=== PATIENT | male | born 1955 | race Two or more races ===

== ENCOUNTER 2020-03-20 13:00 | Outpatient (CLI) | payer MEDICARE, OTHER | END 2020-03-20 23:59 | disposition home health service (06) | LOC: WOU 13:00 | PROVIDERS: ATTEND Surgery | DX: L89.323 Pressure ulcer of left buttock, stage 3 (principal); I70.233 Atherosclerosis of native arteries of right leg with ulceration of ankle; L97.319 Non-pressure chronic ulcer of right ankle with unspecified severity; L22 Diaper dermatitis; G35 Multiple sclerosis; Z86.718 Personal history of other venous thrombosis and embolism; Z79.01 Long term (current) use of anticoagulants | CPT/HCPCS: 11042; A6209 ==

== ENCOUNTER 2020-04-03 12:55 | Outpatient (CLI) | payer MEDICARE, OTHER | END 2020-04-03 23:59 | disposition home or self-care (01) | LOC: WOU 12:55 | PROVIDERS: ATTEND Podiatrist Foot & Ankle Surgery | DX: I73.9 Peripheral vascular disease, unspecified (principal); L60.3 Nail dystrophy; G35 Multiple sclerosis; M25.571 Pain in right ankle and joints of right foot; Z79.01 Long term (current) use of anticoagulants | CPT/HCPCS: A6209; G0463 ==

== ENCOUNTER 2020-04-15 12:50 | Outpatient (CLI) | payer MEDICARE, OTHER | END 2020-04-15 23:59 | disposition home or self-care (01) | LOC: VASLAB 12:50 | PROVIDERS: ATTEND Surgery Vascular Surgery | DX: I87.2 Venous insufficiency (chronic) (peripheral) (principal); L97.318 Non-pressure chronic ulcer of right ankle with other specified severity; G35 Multiple sclerosis; E78.5 Hyperlipidemia, unspecified | CPT/HCPCS: A6209; G0463 ==

== ENCOUNTER 2020-04-17 12:55 | Outpatient (CLI) | payer MEDICARE, OTHER ==
[2020-04-17] MEDS ORDERED: LIDOCAINE SOLN 4% 50 ML BOTTLE ONE (13:10)
== END 2020-04-17 23:59 | disposition home or self-care (01) ==
LOC: WOU 12:55
PROVIDERS: ATTEND Podiatrist Foot & Ankle Surgery
DX: I70.233 Atherosclerosis of native arteries of right leg with ulceration of ankle (principal); L97.312 Non-pressure chronic ulcer of right ankle with fat layer exposed; L03.115 Cellulitis of right lower limb; G35 Multiple sclerosis; M25.571 Pain in right ankle and joints of right foot; L60.3 Nail dystrophy
CPT/HCPCS: 11042; A6210

== ENCOUNTER 2020-04-24 13:05 | Outpatient (CLI) | payer MEDICARE, OTHER | END 2020-04-24 23:59 | disposition home or self-care (01) | LOC: WOU 13:05 | PROVIDERS: ATTEND Podiatrist Foot & Ankle Surgery | DX: I70.233 Atherosclerosis of native arteries of right leg with ulceration of ankle (principal); L97.312 Non-pressure chronic ulcer of right ankle with fat layer exposed; L03.115 Cellulitis of right lower limb; M25.571 Pain in right ankle and joints of right foot; L60.3 Nail dystrophy; G35 Multiple sclerosis | CPT/HCPCS: 11042; 87070-TC; 87075-TC; 87186-TC ==

== ENCOUNTER 2020-05-01 13:20 | Outpatient (CLI) | payer MEDICARE, OTHER | END 2020-05-01 23:59 | disposition home or self-care (01) | LOC: WOU 13:20 | PROVIDERS: ATTEND Podiatrist Foot & Ankle Surgery | DX: I70.233 Atherosclerosis of native arteries of right leg with ulceration of ankle (principal); L97.312 Non-pressure chronic ulcer of right ankle with fat layer exposed; G35 Multiple sclerosis; L60.3 Nail dystrophy; M25.571 Pain in right ankle and joints of right foot | CPT/HCPCS: 11042 ==

== ENCOUNTER 2020-05-08 13:25 | Outpatient (CLI) | payer MEDICARE, OTHER ==
[~2020-05-08 13:25] MED LIST: LIDOCAINE SOLN 4% 50 ML BOTTLE ONE
[2020-05-08] MEDS ORDERED: BACI/NEOM/POLY B OINT PKT 1 UDPKT PACKET ONE (14:21)
== END 2020-05-08 23:59 | disposition home or self-care (01) ==
LOC: WOU 13:25
PROVIDERS: ATTEND Podiatrist Foot & Ankle Surgery
DX: I70.233 Atherosclerosis of native arteries of right leg with ulceration of ankle (principal); L97.322 Non-pressure chronic ulcer of left ankle with fat layer exposed; G35 Multiple sclerosis; M25.571 Pain in right ankle and joints of right foot; L60.3 Nail dystrophy
CPT/HCPCS: 11042

== ENCOUNTER 2020-05-19 08:00 | Outpatient (CLI) | payer MEDICARE, OTHER | END 2020-05-19 23:59 | disposition home or self-care (01) | LOC: WOU 08:00 | PROVIDERS: ATTEND Podiatrist Foot & Ankle Surgery | DX: I70.233 Atherosclerosis of native arteries of right leg with ulceration of ankle (principal); L97.312 Non-pressure chronic ulcer of right ankle with fat layer exposed; M25.571 Pain in right ankle and joints of right foot; L60.3 Nail dystrophy; G35 Multiple sclerosis | CPT/HCPCS: 11042 ==

== ENCOUNTER 2020-05-29 09:40 | Outpatient (CLI) | payer MEDICARE, OTHER ==
[2020-05-29] MEDS ORDERED: LIDOCAINE SOLN 4% 50 ML BOTTLE ONE (09:56)
== END 2020-05-29 23:59 | disposition home or self-care (01) ==
LOC: WOU 09:40
PROVIDERS: ATTEND Podiatrist Foot & Ankle Surgery
DX: I70.233 Atherosclerosis of native arteries of right leg with ulceration of ankle (principal); L97.312 Non-pressure chronic ulcer of right ankle with fat layer exposed; M25.571 Pain in right ankle and joints of right foot; L60.3 Nail dystrophy; G35 Multiple sclerosis
CPT/HCPCS: 15271; Q4196 ×2; 15275

== ENCOUNTER 2020-06-05 09:25 | Outpatient (CLI) | payer MEDICARE, OTHER ==
[2020-06-05] MEDS ORDERED: LIDOCAINE SOLN 4% 50 ML BOTTLE ONE (09:47)
== END 2020-06-05 23:59 | disposition home or self-care (01) ==
LOC: WOU 09:25
PROVIDERS: ATTEND Podiatrist Foot & Ankle Surgery
DX: I70.233 Atherosclerosis of native arteries of right leg with ulceration of ankle (principal); L97.312 Non-pressure chronic ulcer of right ankle with fat layer exposed; L60.3 Nail dystrophy
CPT/HCPCS: 15271; Q4196 ×2; 15275

== ENCOUNTER 2020-06-12 09:25 | Outpatient (CLI) | payer MEDICARE, OTHER ==
[2020-06-12] MEDS ORDERED: LIDOCAINE SOLN 4% 50 ML BOTTLE ONE (09:32)
== END 2020-06-12 23:59 | disposition home or self-care (01) ==
LOC: WOU 09:25
PROVIDERS: ATTEND Podiatrist Foot & Ankle Surgery
DX: I70.233 Atherosclerosis of native arteries of right leg with ulceration of ankle (principal); L97.312 Non-pressure chronic ulcer of right ankle with fat layer exposed; M25.571 Pain in right ankle and joints of right foot; L60.3 Nail dystrophy
CPT/HCPCS: 15271; Q4196 ×2; 15275

== ENCOUNTER 2020-06-19 09:30 | Outpatient (CLI) | payer MEDICARE, OTHER ==
[2020-06-19] MEDS ORDERED: LIDOCAINE SOLN 4% 50 ML BOTTLE ONE (09:39)
== END 2020-06-19 23:59 | disposition home or self-care (01) ==
LOC: WOU 09:30
PROVIDERS: ATTEND Podiatrist Foot & Ankle Surgery
DX: I70.233 Atherosclerosis of native arteries of right leg with ulceration of ankle (principal); L97.312 Non-pressure chronic ulcer of right ankle with fat layer exposed; M25.571 Pain in right ankle and joints of right foot; L60.3 Nail dystrophy
CPT/HCPCS: 15271; Q4196; 15275

== ENCOUNTER 2020-06-26 09:20 | Outpatient (CLI) | payer MEDICARE, OTHER ==
[2020-06-26] MEDS ORDERED: LIDOCAINE SOLN 4% 50 ML BOTTLE ONE (09:34)
== END 2020-06-26 23:59 | disposition home or self-care (01) ==
LOC: WOU 09:20
PROVIDERS: ATTEND Podiatrist Foot & Ankle Surgery
DX: I70.233 Atherosclerosis of native arteries of right leg with ulceration of ankle (principal); L97.312 Non-pressure chronic ulcer of right ankle with fat layer exposed; G35 Multiple sclerosis; L60.3 Nail dystrophy; M25.571 Pain in right ankle and joints of right foot
CPT/HCPCS: 15271; Q4196 ×2

== ENCOUNTER 2020-07-03 09:30 | Outpatient (CLI) | payer MEDICARE, OTHER ==
[2020-07-03] MEDS ORDERED: LIDOCAINE SOLN 4% 50 ML BOTTLE ONE (09:32)
== END 2020-07-03 23:59 | disposition home or self-care (01) ==
LOC: WOU 09:30
PROVIDERS: ATTEND Podiatrist Foot & Ankle Surgery
DX: I70.233 Atherosclerosis of native arteries of right leg with ulceration of ankle (principal); L97.312 Non-pressure chronic ulcer of right ankle with fat layer exposed; L60.3 Nail dystrophy; M25.571 Pain in right ankle and joints of right foot
CPT/HCPCS: 11042

== ENCOUNTER 2020-07-10 09:30 | Outpatient (CLI) | payer MEDICARE, OTHER | END 2020-07-10 23:59 | disposition home or self-care (01) | LOC: WOU 09:30 | PROVIDERS: ATTEND Podiatrist Foot & Ankle Surgery | DX: I70.233 Atherosclerosis of native arteries of right leg with ulceration of ankle (principal); L97.312 Non-pressure chronic ulcer of right ankle with fat layer exposed; L60.3 Nail dystrophy; M25.571 Pain in right ankle and joints of right foot | CPT/HCPCS: 11042 ==

== ENCOUNTER 2020-07-31 09:35 | Outpatient (CLI) | payer MEDICARE, OTHER | END 2020-07-31 23:59 | disposition home or self-care (01) | LOC: WOU 09:35 | PROVIDERS: ATTEND Podiatrist Foot & Ankle Surgery | DX: I70.233 Atherosclerosis of native arteries of right leg with ulceration of ankle (principal); L97.322 Non-pressure chronic ulcer of left ankle with fat layer exposed; G35 Multiple sclerosis; L60.3 Nail dystrophy; M25.571 Pain in right ankle and joints of right foot | CPT/HCPCS: 11042 ==

== ENCOUNTER 2020-08-14 09:35 | Outpatient (CLI) | payer MEDICARE, OTHER | END 2020-08-14 23:59 | disposition home or self-care (01) | LOC: WOU 09:35 | PROVIDERS: ATTEND Podiatrist Foot & Ankle Surgery | DX: I70.233 Atherosclerosis of native arteries of right leg with ulceration of ankle (principal); L97.318 Non-pressure chronic ulcer of right ankle with other specified severity; M25.571 Pain in right ankle and joints of right foot; L60.3 Nail dystrophy; Z79.01 Long term (current) use of anticoagulants; Z79.899 Other long term (current) drug therapy | CPT/HCPCS: G0463 ==

== ENCOUNTER 2021-01-08 10:00 | Outpatient (CLI) | payer MEDICARE, OTHER | END 2021-01-08 23:59 | disposition home or self-care (01) | LOC: WOU 10:00 | PROVIDERS: ATTEND Podiatrist Foot & Ankle Surgery | DX: I70.233 Atherosclerosis of native arteries of right leg with ulceration of ankle (principal); L97.318 Non-pressure chronic ulcer of right ankle with other specified severity; M25.571 Pain in right ankle and joints of right foot; L60.3 Nail dystrophy; Z79.01 Long term (current) use of anticoagulants; Z79.899 Other long term (current) drug therapy ==

== ENCOUNTER 2021-01-15 09:45 | Outpatient (CLI) | payer MEDICARE, OTHER ==
[2021-01-15] MEDS ORDERED: BACITRACIN ZINC OINT PACKET 1 EA PACKET TP ONE (10:41)
== END 2021-01-15 23:59 | disposition home or self-care (01) ==
LOC: WOU 09:45
PROVIDERS: ATTEND Podiatrist Foot & Ankle Surgery
DX: L60.3 Nail dystrophy (principal); I73.9 Peripheral vascular disease, unspecified; M25.571 Pain in right ankle and joints of right foot; Z79.01 Long term (current) use of anticoagulants; Z79.899 Other long term (current) drug therapy
CPT/HCPCS: G0463

== ENCOUNTER 2021-07-09 11:20 | Outpatient (CLI) | payer MEDICARE, OTHER ==
[2021-07-09] MEDS ORDERED: LIDOCAINE 2% JEL 5 ML TUBE ONE (11:48)
[2021-07-09] MEDS ORDERED: COLLAGENASE 5 GM TUBE UD TP ONE (12:01)
== END 2021-07-09 23:59 | disposition home or self-care (01) ==
LOC: WOU 11:20
PROVIDERS: ATTEND Podiatrist Foot & Ankle Surgery
DX: I70.233 Atherosclerosis of native arteries of right leg with ulceration of ankle (principal); L97.312 Non-pressure chronic ulcer of right ankle with fat layer exposed; L60.3 Nail dystrophy; G35 Multiple sclerosis; M25.571 Pain in right ankle and joints of right foot; R26.2 Difficulty in walking, not elsewhere classified; Z79.01 Long term (current) use of anticoagulants; Z79.899 Other long term (current) drug therapy
CPT/HCPCS: 11042

== ENCOUNTER 2021-07-15 08:40 | Outpatient (CLI) | payer MEDICARE, OTHER ==
[2021-07-15] MEDS ORDERED: COLLAGENASE 5 GM TUBE UD TP ONE (09:24)
== END 2021-07-15 23:59 | disposition home or self-care (01) ==
LOC: VASLAB 08:40
PROVIDERS: ATTEND Internal Medicine
DX: I87.2 Venous insufficiency (chronic) (peripheral) (principal); L97.319 Non-pressure chronic ulcer of right ankle with unspecified severity; Z86.718 Personal history of other venous thrombosis and embolism; Z79.01 Long term (current) use of anticoagulants; M79.89 Other specified soft tissue disorders; G35 Multiple sclerosis
CPT/HCPCS: G0463

== ENCOUNTER 2021-07-16 11:10 | Outpatient (CLI) | payer MEDICARE, OTHER ==
[2021-07-16] MEDS ORDERED: COLLAGENASE 5 GM TUBE UD TP ONE (11:35)
== END 2021-07-16 23:59 | disposition home or self-care (01) ==
LOC: WOU 11:10
PROVIDERS: ATTEND Podiatrist Foot & Ankle Surgery
DX: I70.233 Atherosclerosis of native arteries of right leg with ulceration of ankle (principal); L97.312 Non-pressure chronic ulcer of right ankle with fat layer exposed; L03.115 Cellulitis of right lower limb; G35 Multiple sclerosis; R26.2 Difficulty in walking, not elsewhere classified; L60.3 Nail dystrophy; M25.571 Pain in right ankle and joints of right foot; Z79.01 Long term (current) use of anticoagulants; Z79.899 Other long term (current) drug therapy
CPT/HCPCS: 11042

== ENCOUNTER 2021-07-21 13:08 | Outpatient (CLI) | payer MEDICARE, OTHER | END 2021-07-21 23:59 | disposition home or self-care (01) | LOC: MSC 13:08 | PROVIDERS: ATTEND Anesthesiology | DX: G35 Multiple sclerosis (principal); M79.604 Pain in right leg; G82.20 Paraplegia, unspecified; Z99.3 Dependence on wheelchair; M54.50 Low back pain, unspecified; M40.299 Other kyphosis, site unspecified; M79.2 Neuralgia and neuritis, unspecified; L97.901 Non-pressure chronic ulcer of unspecified part of unspecified lower leg limited to breakdown of skin; Z79.891 Long term (current) use of opiate analgesic; Z90.89 Acquired absence of other organs; Z79.890 Hormone replacement therapy; Z98.890 Other specified postprocedural states ==

== ENCOUNTER 2021-08-02 13:08 | Emergency (ER) | payer MEDICARE, OTHER ==
[~2021-08-02] VITALS: Ht 177.8 cm; Wt 98.4 kg
--- NOTE | 2021-08-02 13:30 | NUR ---
SENT HERE FROM CLINIC DUE TO RIGHT LEG PAIN/SWELLING,S/P CARDIAC ABLATION X7 DAYS. A/OX3. TOLERATING R/A WELL WITH NO SOB. CONNECTED PT TO POX AND MONITOR.
[2021-08-02 16:08] LABS: BASOPHILS % (AUTO) 0.5 % (0.0-2.0); EOSINOPHILS % (AUTO) 0.8 % (0.0-6.0); HEMATOCRIT 41 % (39-51); HEMOGLOBIN 13.5 g/dL (13.5-17.5); LYMPHOCYTES # (AUTO) 1.3 K/uL (0.8-4.8); LYMPHOCYTES % (AUTO) 22.6 % (20.0-44.0); MEAN CORPUSCULAR HGB CONC 33 g/dl (31.0-36.0); MEAN CORPUSCULAR VOLUME 91 fL (80-96); MONOCYTES # (AUTO) 0.5 K/uL (0.1-1.30); MONOCYTES % (AUTO) 7.9 % (2.0-12.0); NEUTROPHILS # (AUTO) 3.9 K/uL (1.8-8.9); NEUTROPHILS % (AUTO) 68.2 % (43.0-81.0); PLATELET COUNT (AUTO) 220 K/uL (150-450); RED BLOOD CELL COUNT(AUTO) 4.49 MIL/uL (4.5-6.0); WHITE BLOOD COUNT (AUTO) 5.7 K/uL (4.3-11.0)
[2021-08-02 16:23] LABS: CALCIUM, SERUM 8.2 mg/dL (8.5-10.1); POTASSIUM 4.1 mmol/L (3.5-5.1)
[2021-08-02 16:35] LABS: ALBUMIN 2.9 g/dL (3.4-5.0); BILIRUBIN,DIRECT 0.1 mg/dL (0.0-0.2); BILIRUBIN,TOTAL 0.3 mg/dL (0.2-1.0); TOTAL PROTEIN, SERUM 6.4 g/dL (6.4-8.2)
[2021-08-02] MEDS ORDERED: ONDA4TAB5 PO (17:20)
[2021-08-02] MEDS ORDERED: CEPH500C2 PO (17:20)
[2021-08-02] MEDS ORDERED: SULF1TAB48 PO (17:20)
[2021-08-02 17:35] VITALS: BP 135/72
--- NOTE | 2021-08-02 17:35 | NUR ---
Patient discharged to home in stable condition. Written and verbal after care instructions given. Patient verbalizes understanding of instruction.
== END 2021-08-02 17:36 | disposition home or self-care (01) ==
LOC: ER 13:13
DX: L03.115 Cellulitis of right lower limb (principal); I80.01 Phlebitis and thrombophlebitis of superficial vessels of right lower extremity; R60.0 Localized edema; Z88.6 Allergy status to analgesic agent
CPT/HCPCS: 36415; 80048-TC; 80076-TC; 85025-TC; 93971-TC

== ENCOUNTER 2021-08-13 09:15 | Outpatient (CLI) | payer MEDICARE, OTHER ==
[~2021-08-13 09:15] MED LIST changes: +CEPH500C2 PO; -LIDOCAINE SOLN 4% 50 ML BOTTLE ONE; +ONDA4TAB5 PO; +SULF1TAB48 PO
[2021-08-13] MEDS ORDERED: LIDOCAINE 2% JEL 5 ML TUBE ONE (09:30)
== END 2021-08-13 23:59 | disposition home or self-care (01) ==
LOC: WOU 09:15
PROVIDERS: ATTEND Podiatrist Foot & Ankle Surgery
DX: I70.233 Atherosclerosis of native arteries of right leg with ulceration of ankle (principal); L97.312 Non-pressure chronic ulcer of right ankle with fat layer exposed; G35 Multiple sclerosis; M25.571 Pain in right ankle and joints of right foot; R26.2 Difficulty in walking, not elsewhere classified; L60.3 Nail dystrophy; Z79.01 Long term (current) use of anticoagulants; Z79.899 Other long term (current) drug therapy
CPT/HCPCS: G0463

== ENCOUNTER 2021-08-27 09:00 | Outpatient (CLI) | payer MEDICARE, OTHER | END 2021-08-27 23:59 | disposition home or self-care (01) | LOC: WOU 09:00 | PROVIDERS: ATTEND Podiatrist Foot & Ankle Surgery | DX: I70.233 Atherosclerosis of native arteries of right leg with ulceration of ankle (principal); L97.312 Non-pressure chronic ulcer of right ankle with fat layer exposed; M25.571 Pain in right ankle and joints of right foot; R26.2 Difficulty in walking, not elsewhere classified; L60.3 Nail dystrophy; G35 Multiple sclerosis; Z79.01 Long term (current) use of anticoagulants; Z79.899 Other long term (current) drug therapy | CPT/HCPCS: G0463 ==

== ENCOUNTER 2021-09-10 09:00 | Outpatient (CLI) | payer MEDICARE, OTHER ==
[2021-09-10] MEDS ORDERED: COLLAGENASE 5 GM TUBE UD TP ONE (09:36)
== END 2021-09-10 23:59 | disposition home or self-care (01) ==
LOC: WOU 09:00
PROVIDERS: ATTEND Podiatrist Foot & Ankle Surgery
DX: I70.233 Atherosclerosis of native arteries of right leg with ulceration of ankle (principal); L97.312 Non-pressure chronic ulcer of right ankle with fat layer exposed; L03.115 Cellulitis of right lower limb; G35 Multiple sclerosis; L60.3 Nail dystrophy; R26.2 Difficulty in walking, not elsewhere classified; M25.571 Pain in right ankle and joints of right foot; Z79.01 Long term (current) use of anticoagulants; Z79.899 Other long term (current) drug therapy
CPT/HCPCS: 11042; 87070-TC; 87186-TC

== ENCOUNTER 2021-09-15 11:00 | Outpatient (CLI) | payer MEDICARE, OTHER | END 2021-09-15 23:59 | disposition home or self-care (01) | LOC: MSC 11:00 | PROVIDERS: ATTEND Anesthesiology | DX: L97.911 Non-pressure chronic ulcer of unspecified part of right lower leg limited to breakdown of skin (principal); G35 Multiple sclerosis; Z79.899 Other long term (current) drug therapy; G82.22 Paraplegia, incomplete; G82.20 Paraplegia, unspecified; Z99.3 Dependence on wheelchair; M54.50 Low back pain, unspecified; Z79.891 Long term (current) use of opiate analgesic; M40.299 Other kyphosis, site unspecified; M79.2 Neuralgia and neuritis, unspecified ==

== ENCOUNTER 2021-09-17 09:04 | Outpatient (CLI) | payer MEDICARE, OTHER ==
[2021-09-17] MEDS ORDERED: LIDOCAINE SOLN 4% 50 ML BOTTLE ONE (09:18)
[2021-09-17] MEDS ORDERED: GENTAMICIN 0.1% CREAM 15 GM TUBE ONE (09:52)
== END 2021-09-17 23:59 | disposition home or self-care (01) ==
LOC: WOU 09:04
PROVIDERS: ATTEND Podiatrist Foot & Ankle Surgery
DX: I70.233 Atherosclerosis of native arteries of right leg with ulceration of ankle (principal); L97.312 Non-pressure chronic ulcer of right ankle with fat layer exposed; G35 Multiple sclerosis; L03.115 Cellulitis of right lower limb; B96.5 Pseudomonas (aeruginosa) (mallei) (pseudomallei) as the cause of diseases classified elsewhere; L60.3 Nail dystrophy; M25.571 Pain in right ankle and joints of right foot; Z79.01 Long term (current) use of anticoagulants; Z79.899 Other long term (current) drug therapy
CPT/HCPCS: 11042

== ENCOUNTER 2021-09-21 12:15 | Outpatient (CLI) | payer MEDICARE, OTHER | END 2021-09-21 23:59 | disposition home or self-care (01) | LOC: WOU 12:15 | PROVIDERS: ATTEND Registered Nurse | DX: I82.4Z2 Acute embolism and thrombosis of unspecified deep veins of left distal lower extremity (principal); Z79.01 Long term (current) use of anticoagulants; L97.319 Non-pressure chronic ulcer of right ankle with unspecified severity; G35 Multiple sclerosis; B96.5 Pseudomonas (aeruginosa) (mallei) (pseudomallei) as the cause of diseases classified elsewhere; Z16.24 Resistance to multiple antibiotics | CPT/HCPCS: G0463 ==

== ENCOUNTER 2021-09-24 09:10 | Outpatient (CLI) | payer MEDICARE, OTHER ==
[2021-09-24] MEDS ORDERED: LIDOCAINE SOLN 4% 50 ML BOTTLE ONE (09:23)
[2021-09-24] MEDS ORDERED: GENTAMICIN 0.1% CREAM 15 GM TUBE ONE (09:41)
== END 2021-09-24 23:59 | disposition home health service (06) ==
LOC: WOU 09:10
PROVIDERS: ATTEND Podiatrist Foot & Ankle Surgery
DX: I70.233 Atherosclerosis of native arteries of right leg with ulceration of ankle (principal); L97.312 Non-pressure chronic ulcer of right ankle with fat layer exposed; L03.115 Cellulitis of right lower limb; B96.5 Pseudomonas (aeruginosa) (mallei) (pseudomallei) as the cause of diseases classified elsewhere; G35 Multiple sclerosis; M25.571 Pain in right ankle and joints of right foot; L60.3 Nail dystrophy; Z79.01 Long term (current) use of anticoagulants; Z79.899 Other long term (current) drug therapy
CPT/HCPCS: 11042

== ENCOUNTER 2021-10-01 09:00 | Outpatient (CLI) | payer MEDICARE, OTHER ==
[2021-10-01] MEDS ORDERED: LIDOCAINE SOLN 4% 50 ML BOTTLE ONE (09:13)
== END 2021-10-01 23:59 | disposition home health service (06) ==
LOC: WOU 09:00
PROVIDERS: ATTEND Podiatrist Foot & Ankle Surgery
DX: I70.233 Atherosclerosis of native arteries of right leg with ulceration of ankle (principal); L97.312 Non-pressure chronic ulcer of right ankle with fat layer exposed; L03.115 Cellulitis of right lower limb; B96.5 Pseudomonas (aeruginosa) (mallei) (pseudomallei) as the cause of diseases classified elsewhere; G35 Multiple sclerosis; L60.3 Nail dystrophy; M25.571 Pain in right ankle and joints of right foot; R26.2 Difficulty in walking, not elsewhere classified; Z79.01 Long term (current) use of anticoagulants; Z79.899 Other long term (current) drug therapy
CPT/HCPCS: 11042; A6207

== ENCOUNTER 2021-10-08 09:00 | Outpatient (CLI) | payer MEDICARE, OTHER ==
[2021-10-08] MEDS ORDERED: LIDOCAINE SOLN 4% 50 ML BOTTLE ONE (09:15)
[2021-10-08] MEDS ORDERED: COLLAGENASE 5 GM TUBE UD TP ONE (09:44)
== END 2021-10-08 23:59 | disposition home health service (06) ==
LOC: WOU 09:00
PROVIDERS: ATTEND Podiatrist Foot & Ankle Surgery
DX: I70.233 Atherosclerosis of native arteries of right leg with ulceration of ankle (principal); L97.312 Non-pressure chronic ulcer of right ankle with fat layer exposed; M25.571 Pain in right ankle and joints of right foot; R26.2 Difficulty in walking, not elsewhere classified; L60.3 Nail dystrophy; G35 Multiple sclerosis; Z79.01 Long term (current) use of anticoagulants
CPT/HCPCS: 11042

== ENCOUNTER 2021-10-13 12:55 | Outpatient (CLI) | payer MEDICARE, OTHER | END 2021-10-13 23:59 | disposition home or self-care (01) | LOC: MSC 12:55 | PROVIDERS: ATTEND Anesthesiology | DX: M79.606 Pain in leg, unspecified (principal); G35 Multiple sclerosis; G82.22 Paraplegia, incomplete; G82.20 Paraplegia, unspecified; Z99.3 Dependence on wheelchair; M54.50 Low back pain, unspecified; M40.299 Other kyphosis, site unspecified; M79.2 Neuralgia and neuritis, unspecified; L97.901 Non-pressure chronic ulcer of unspecified part of unspecified lower leg limited to breakdown of skin; Z79.891 Long term (current) use of opiate analgesic; Z79.899 Other long term (current) drug therapy ==

== ENCOUNTER 2021-10-15 09:17 | Outpatient (CLI) | payer MEDICARE, OTHER ==
[2021-10-15] MEDS ORDERED: LIDOCAINE SOLN 4% 50 ML BOTTLE ONE (09:22)
[2021-10-15] MEDS ORDERED: COLLAGENASE 5 GM TUBE UD TP ONE (09:45)
== END 2021-10-15 23:59 | disposition home health service (06) ==
LOC: WOU 09:17
PROVIDERS: ATTEND Podiatrist Foot & Ankle Surgery
DX: I70.233 Atherosclerosis of native arteries of right leg with ulceration of ankle (principal); L97.312 Non-pressure chronic ulcer of right ankle with fat layer exposed; R26.2 Difficulty in walking, not elsewhere classified; L60.3 Nail dystrophy; G35 Multiple sclerosis; M25.571 Pain in right ankle and joints of right foot; Z79.01 Long term (current) use of anticoagulants; Z79.899 Other long term (current) drug therapy
CPT/HCPCS: 11042

== ENCOUNTER 2021-10-22 09:00 | Outpatient (CLI) | payer MEDICARE, OTHER | END 2021-10-22 23:59 | disposition home health service (06) | LOC: WOU 09:00 | PROVIDERS: ATTEND Podiatrist Foot & Ankle Surgery | DX: I70.233 Atherosclerosis of native arteries of right leg with ulceration of ankle (principal); L97.312 Non-pressure chronic ulcer of right ankle with fat layer exposed; G35 Multiple sclerosis; I87.2 Venous insufficiency (chronic) (peripheral); L60.3 Nail dystrophy; R26.2 Difficulty in walking, not elsewhere classified; M25.571 Pain in right ankle and joints of right foot; Z79.899 Other long term (current) drug therapy; Z79.01 Long term (current) use of anticoagulants | CPT/HCPCS: 11042 ==

== ENCOUNTER 2021-10-29 09:11 | Outpatient (CLI) | payer MEDICARE, OTHER ==
[2021-10-29] MEDS ORDERED: COLLAGENASE 5 GM TUBE UD TP ONE (09:58)
== END 2021-10-29 23:59 | disposition home health service (06) ==
LOC: WOU 09:11
PROVIDERS: ATTEND Podiatrist Foot & Ankle Surgery
DX: I70.233 Atherosclerosis of native arteries of right leg with ulceration of ankle (principal); L97.312 Non-pressure chronic ulcer of right ankle with fat layer exposed; I87.2 Venous insufficiency (chronic) (peripheral); L60.3 Nail dystrophy; G35 Multiple sclerosis; M25.571 Pain in right ankle and joints of right foot; R26.2 Difficulty in walking, not elsewhere classified; Z79.899 Other long term (current) drug therapy; Z79.01 Long term (current) use of anticoagulants
CPT/HCPCS: 11042

== ENCOUNTER 2021-11-05 09:05 | Outpatient (CLI) | payer MEDICARE, OTHER ==
[2021-11-05] MEDS ORDERED: GENTAMICIN 0.1% CREAM 15 GM TUBE ONE (09:54)
[2021-11-05] MEDS ORDERED: MUPIROCIN 2% CREAM 15 GM TUBE TP ONE (09:55)
== END 2021-11-05 23:59 | disposition home health service (06) ==
LOC: WOU 09:05
PROVIDERS: ATTEND Podiatrist Foot & Ankle Surgery
DX: I70.233 Atherosclerosis of native arteries of right leg with ulceration of ankle (principal); L97.312 Non-pressure chronic ulcer of right ankle with fat layer exposed; L03.115 Cellulitis of right lower limb; M25.571 Pain in right ankle and joints of right foot; R26.2 Difficulty in walking, not elsewhere classified; L60.3 Nail dystrophy; G35 Multiple sclerosis; Z79.01 Long term (current) use of anticoagulants; Z79.899 Other long term (current) drug therapy
CPT/HCPCS: 87070; 87075; G0463

== ENCOUNTER 2021-11-12 09:10 | Outpatient (CLI) | payer MEDICARE, OTHER ==
[2021-11-12] MEDS ORDERED: LIDOCAINE SOLN 4% 50 ML BOTTLE ONE (09:19)
[2021-11-12] MEDS ORDERED: MUPIROCIN 2% CREAM 15 GM TUBE TP ONE (09:51)
[2021-11-12] MEDS ORDERED: GENTAMICIN 0.1% CREAM 15 GM TUBE ONE (09:51)
== END 2021-11-12 23:59 | disposition home health service (06) ==
LOC: WOU 09:10
PROVIDERS: ATTEND Podiatrist Foot & Ankle Surgery
DX: I70.233 Atherosclerosis of native arteries of right leg with ulceration of ankle (principal); L97.312 Non-pressure chronic ulcer of right ankle with fat layer exposed; G35 Multiple sclerosis; M25.571 Pain in right ankle and joints of right foot; R26.2 Difficulty in walking, not elsewhere classified; L60.3 Nail dystrophy; Z79.899 Other long term (current) drug therapy
CPT/HCPCS: 11042

== ENCOUNTER 2021-11-24 12:50 | Outpatient (CLI) | payer MEDICARE, OTHER | END 2021-11-24 23:59 | disposition home or self-care (01) | LOC: MSC 12:50 | PROVIDERS: ATTEND Anesthesiology | DX: G35 Multiple sclerosis (principal); Z79.899 Other long term (current) drug therapy; M54.50 Low back pain, unspecified; M40.299 Other kyphosis, site unspecified; G82.22 Paraplegia, incomplete; G82.20 Paraplegia, unspecified; Z79.891 Long term (current) use of opiate analgesic; L97.901 Non-pressure chronic ulcer of unspecified part of unspecified lower leg limited to breakdown of skin; M79.2 Neuralgia and neuritis, unspecified; Z99.3 Dependence on wheelchair ==

== ENCOUNTER → 2021-11-26 | Outpatient (CLI) | payer MEDICARE, OTHER ==
[~2021-11-26] MED LIST changes: +COLLAGENASE 5 GM TUBE UD TP ONE; +HYDROCORTISONE 1% CREAM 28.35 GM TUBE TP ONE; +LIDOCAINE SOLN 4% 50 ML BOTTLE ONE
== END | disposition home health service (06) ==
LOC: WOU 09:00
PROVIDERS: ATTEND Podiatrist Foot & Ankle Surgery
DX: I70.233 Atherosclerosis of native arteries of right leg with ulceration of ankle (principal); L97.312 Non-pressure chronic ulcer of right ankle with fat layer exposed; L03.115 Cellulitis of right lower limb; G35 Multiple sclerosis; M25.571 Pain in right ankle and joints of right foot; R26.2 Difficulty in walking, not elsewhere classified; L60.3 Nail dystrophy; Z79.01 Long term (current) use of anticoagulants; Z79.899 Other long term (current) drug therapy
CPT/HCPCS: 11042

== ENCOUNTER 2021-12-03 11:00 | Outpatient (CLI) | payer MEDICARE, OTHER ==
[~2021-12-03 11:00] MED LIST changes: -COLLAGENASE 5 GM TUBE UD TP ONE; -HYDROCORTISONE 1% CREAM 28.35 GM TUBE TP ONE; -LIDOCAINE SOLN 4% 50 ML BOTTLE ONE
[2021-12-03] MEDS ORDERED: LIDOCAINE SOLN 4% 50 ML BOTTLE ONE (11:17)
== END 2021-12-03 23:59 | disposition home health service (06) ==
LOC: WOU 11:00
PROVIDERS: ATTEND Podiatrist Foot & Ankle Surgery
DX: I70.233 Atherosclerosis of native arteries of right leg with ulceration of ankle (principal); L97.312 Non-pressure chronic ulcer of right ankle with fat layer exposed; L03.115 Cellulitis of right lower limb; G35 Multiple sclerosis; L60.3 Nail dystrophy; R26.2 Difficulty in walking, not elsewhere classified; M25.571 Pain in right ankle and joints of right foot; Z79.01 Long term (current) use of anticoagulants
CPT/HCPCS: 11042; A6253

== ENCOUNTER 2021-12-10 09:20 | Outpatient (CLI) | payer MEDICARE, OTHER ==
[2021-12-10] MEDS ORDERED: LIDOCAINE SOLN 4% 50 ML BOTTLE ONE (09:28)
[2021-12-10] MEDS ORDERED: COLLAGENASE 5 GM TUBE UD TP ONE (10:06)
[2021-12-10] MEDS ORDERED: LIDOCAINE 2% JEL 5 ML TUBE ONE (10:06)
== END 2021-12-10 23:59 | disposition home health service (06) ==
LOC: WOU 09:20
PROVIDERS: ATTEND Podiatrist Foot & Ankle Surgery
DX: I70.233 Atherosclerosis of native arteries of right leg with ulceration of ankle (principal); L97.312 Non-pressure chronic ulcer of right ankle with fat layer exposed; G35 Multiple sclerosis; L60.3 Nail dystrophy; M25.571 Pain in right ankle and joints of right foot; R26.2 Difficulty in walking, not elsewhere classified; Z79.899 Other long term (current) drug therapy; Z79.01 Long term (current) use of anticoagulants

== ENCOUNTER 2021-12-17 08:59 | Outpatient (CLI) | payer MEDICARE, OTHER ==
[2021-12-17] MEDS ORDERED: LIDOCAINE SOLN 4% 50 ML BOTTLE ONE (09:12)
[2021-12-17] MEDS ORDERED: LIDOCAINE 2% JEL 5 ML TUBE ONE (09:24)
[2021-12-17] MEDS ORDERED: COLLAGENASE 5 GM TUBE UD TP ONE (09:47)
[2021-12-17] MEDS ORDERED: HYDROCORTISONE 1% CREAM 28.35 GM TUBE TP ONE (09:52)
== END 2021-12-17 23:59 | disposition home health service (06) ==
LOC: WOU 08:59
PROVIDERS: ATTEND Podiatrist Foot & Ankle Surgery
DX: I70.233 Atherosclerosis of native arteries of right leg with ulceration of ankle (principal); L97.312 Non-pressure chronic ulcer of right ankle with fat layer exposed; L03.115 Cellulitis of right lower limb; G35 Multiple sclerosis; L60.3 Nail dystrophy; M25.571 Pain in right ankle and joints of right foot; R26.2 Difficulty in walking, not elsewhere classified; Z79.01 Long term (current) use of anticoagulants
CPT/HCPCS: 11042; 87070-TC; 87075-TC; 87186-TC

== ENCOUNTER 2021-12-22 12:50 | Outpatient (CLI) | payer MEDICARE, OTHER | END 2021-12-22 23:59 | disposition home or self-care (01) | LOC: MSC 12:50 | PROVIDERS: ATTEND Anesthesiology | DX: M54.50 Low back pain, unspecified (principal); M40.299 Other kyphosis, site unspecified; G35 Multiple sclerosis; G82.22 Paraplegia, incomplete; G82.20 Paraplegia, unspecified; Z79.891 Long term (current) use of opiate analgesic; L97.901 Non-pressure chronic ulcer of unspecified part of unspecified lower leg limited to breakdown of skin; M79.2 Neuralgia and neuritis, unspecified; Z79.899 Other long term (current) drug therapy ==

== ENCOUNTER 2021-12-31 09:00 | Outpatient (CLI) | payer MEDICARE, OTHER ==
[2021-12-31] MEDS ORDERED: LIDOCAINE SOLN 4% 50 ML BOTTLE ONE (09:16)
[2021-12-31] MEDS ORDERED: COLLAGENASE 5 GM TUBE UD TP ONE (09:51)
[2021-12-31] MEDS ORDERED: HYDROCORTISONE 1% CREAM 28.35 GM TUBE TP ONE (09:57)
== END 2021-12-31 23:59 | disposition home health service (06) ==
LOC: WOU 09:00
PROVIDERS: ATTEND Podiatrist Foot & Ankle Surgery
DX: I70.233 Atherosclerosis of native arteries of right leg with ulceration of ankle (principal); L97.312 Non-pressure chronic ulcer of right ankle with fat layer exposed; L03.115 Cellulitis of right lower limb; G35 Multiple sclerosis; R26.2 Difficulty in walking, not elsewhere classified; M25.571 Pain in right ankle and joints of right foot; L60.3 Nail dystrophy; Z79.01 Long term (current) use of anticoagulants; Z79.899 Other long term (current) drug therapy
CPT/HCPCS: 11042

== ENCOUNTER 2022-01-07 09:00 | Outpatient (CLI) | payer MEDICARE, OTHER ==
[2022-01-07] MEDS ORDERED: LIDOCAINE SOLN 4% 50 ML BOTTLE ONE (09:06)
== END 2022-01-07 23:59 | disposition home health service (06) ==
LOC: WOU 09:00
PROVIDERS: ATTEND Podiatrist Foot & Ankle Surgery
DX: I70.233 Atherosclerosis of native arteries of right leg with ulceration of ankle (principal); L97.312 Non-pressure chronic ulcer of right ankle with fat layer exposed; L03.115 Cellulitis of right lower limb; M25.571 Pain in right ankle and joints of right foot; G35 Multiple sclerosis; L60.3 Nail dystrophy; Z79.899 Other long term (current) drug therapy; Z79.02 Long term (current) use of antithrombotics/antiplatelets
CPT/HCPCS: 11042

== ENCOUNTER 2022-01-14 09:00 | Outpatient (CLI) | payer MEDICARE, OTHER ==
[2022-01-14] MEDS ORDERED: LIDOCAINE SOLN 4% 50 ML BOTTLE ONE (09:16)
[2022-01-14] MEDS ORDERED: LIDOCAINE HCL/MPF 1% 30 ML VIAL IJ ONE (09:34)
[2022-01-14] MEDS ORDERED: GENTAMICIN 0.1% CREAM 15 GM TUBE ONE (10:09)
== END 2022-01-14 23:59 | disposition home health service (06) ==
LOC: WOU 09:00
PROVIDERS: ATTEND Podiatrist Foot & Ankle Surgery
DX: I70.233 Atherosclerosis of native arteries of right leg with ulceration of ankle (principal); L97.313 Non-pressure chronic ulcer of right ankle with necrosis of muscle; L03.115 Cellulitis of right lower limb; G35 Multiple sclerosis; M25.571 Pain in right ankle and joints of right foot; L60.3 Nail dystrophy; Z79.01 Long term (current) use of anticoagulants; Z79.899 Other long term (current) drug therapy
CPT/HCPCS: 11043; 82962; J3490

== ENCOUNTER 2022-01-18 10:25 | Outpatient (CLI) | payer MEDICARE, OTHER ==
[2022-01-18] MEDS ORDERED: LIDOCAINE SOLN 4% 50 ML BOTTLE ONE (10:54)
[2022-01-18 11:06] LABS: BASOPHILS % (AUTO) 0.8 % (0.0-2.0); EOSINOPHILS % (AUTO) 2.5 % (0.0-6.0); HEMATOCRIT 39 % (39-51); HEMOGLOBIN 13.2 g/dL (13.5-17.5); LYMPHOCYTES % (AUTO) 46.1 % (20.0-44.0); MEAN CORPUSCULAR HGB CONC 34 g/dl (31.0-36.0); MEAN CORPUSCULAR VOLUME 89 fL (80-96); MONOCYTES # (AUTO) 0.5 K/uL (0.1-1.30); MONOCYTES % (AUTO) 10.7 % (2.0-12.0); NEUTROPHILS # (AUTO) 1.7 K/uL (1.8-8.9); NEUTROPHILS % (AUTO) 39.9 % (43.0-81.0); PLATELET COUNT (AUTO) 205 K/uL (150-450); RED BLOOD CELL COUNT(AUTO) 4.42 MIL/uL (4.5-6.0); WHITE BLOOD COUNT (AUTO) 4.3 K/uL (4.3-11.0)
[2022-01-18] MEDS ORDERED: GENTAMICIN 0.1% CREAM 15 GM TUBE ONE (11:06)
[2022-01-18] MEDS ORDERED: HYDROCORTISONE 1% CREAM 28.35 GM TUBE TP ONE (11:06)
[2022-01-18 12:03] LABS: PREALBUMIN 22.1 MG/DL (18.0-35.7)
[2022-01-18 12:09] LABS: BILIRUBIN,TOTAL 0.4 mg/dL (0.2-1.0); CALCIUM, SERUM 8.8 mg/dL (8.5-10.1); CREATININE 1.1 mg/dL (0.6-1.3); POTASSIUM 3.6 mmol/L (3.5-5.1); TOTAL PROTEIN, SERUM 6.6 g/dL (6.4-8.2)
== END 2022-01-18 23:59 | disposition home health service (06) ==
LOC: WOU 10:25
PROVIDERS: ATTEND Podiatrist Foot & Ankle Surgery
DX: I70.233 Atherosclerosis of native arteries of right leg with ulceration of ankle (principal); L97.313 Non-pressure chronic ulcer of right ankle with necrosis of muscle; L03.115 Cellulitis of right lower limb; G35 Multiple sclerosis; L60.3 Nail dystrophy; Z79.01 Long term (current) use of anticoagulants; Z79.899 Other long term (current) drug therapy; M25.571 Pain in right ankle and joints of right foot
CPT/HCPCS: 11043; 36415; 80053-TC; 84134-TC; 85025-TC; 85652-TC

== ENCOUNTER → 2022-01-28 | Outpatient (CLI) | payer MEDICARE, OTHER ==
[~2022-01-28] MED LIST changes: +COLLAGENASE 5 GM TUBE UD TP ONE; +LIDOCAINE 2% JEL 5 ML TUBE ONE; +LIDOCAINE SOLN 4% 50 ML BOTTLE ONE
== END | disposition home health service (06) ==
LOC: WOU 09:00
PROVIDERS: ATTEND Podiatrist Foot & Ankle Surgery
DX: I70.233 Atherosclerosis of native arteries of right leg with ulceration of ankle (principal); L97.312 Non-pressure chronic ulcer of right ankle with fat layer exposed; L03.115 Cellulitis of right lower limb; M25.571 Pain in right ankle and joints of right foot; G35 Multiple sclerosis; R26.2 Difficulty in walking, not elsewhere classified; L60.3 Nail dystrophy; Z79.01 Long term (current) use of anticoagulants; Z79.899 Other long term (current) drug therapy
CPT/HCPCS: 11042

== ENCOUNTER 2022-02-04 09:00 | Outpatient (CLI) | payer MEDICARE, OTHER ==
[~2022-02-04 09:00] MED LIST changes: -COLLAGENASE 5 GM TUBE UD TP ONE; -LIDOCAINE 2% JEL 5 ML TUBE ONE; -LIDOCAINE SOLN 4% 50 ML BOTTLE ONE
[2022-02-04] MEDS ORDERED: LIDOCAINE SOLN 4% 50 ML BOTTLE ONE (09:06)
[2022-02-04] MEDS ORDERED: LIDOCAINE 2% JEL 5 ML TUBE ONE (09:06)
[2022-02-04] MEDS ORDERED: COLLAGENASE 5 GM TUBE UD TP ONE (09:24)
== END 2022-02-04 23:59 | disposition home health service (06) ==
LOC: WOU 09:00
PROVIDERS: ATTEND Podiatrist Foot & Ankle Surgery
DX: I70.233 Atherosclerosis of native arteries of right leg with ulceration of ankle (principal); L97.312 Non-pressure chronic ulcer of right ankle with fat layer exposed; G35 Multiple sclerosis; L60.3 Nail dystrophy; M25.571 Pain in right ankle and joints of right foot; Z79.01 Long term (current) use of anticoagulants; Z79.899 Other long term (current) drug therapy
CPT/HCPCS: 11042

== ENCOUNTER 2022-02-09 13:13 | Outpatient (CLI) | payer MEDICARE, OTHER | END 2022-02-09 23:59 | disposition home or self-care (01) | LOC: MSC 13:13 | PROVIDERS: ATTEND Anesthesiology | DX: M54.50 Low back pain, unspecified (principal); M40.299 Other kyphosis, site unspecified; M79.604 Pain in right leg; G35 Multiple sclerosis; Z99.3 Dependence on wheelchair; G82.22 Paraplegia, incomplete; G82.20 Paraplegia, unspecified; M79.2 Neuralgia and neuritis, unspecified; Z79.891 Long term (current) use of opiate analgesic; L97.901 Non-pressure chronic ulcer of unspecified part of unspecified lower leg limited to breakdown of skin; Z98.890 Other specified postprocedural states ==

== ENCOUNTER 2022-02-18 09:17 | Outpatient (CLI) | payer MEDICARE, OTHER ==
[2022-02-18] MEDS ORDERED: LIDOCAINE SOLN 4% 50 ML BOTTLE ONE (09:26)
[2022-02-18] MEDS ORDERED: LIDOCAINE 2% JEL 5 ML TUBE ONE (09:26)
[2022-02-18] MEDS ORDERED: COLLAGENASE 5 GM TUBE UD TP ONE (09:48)
[2022-02-18] MEDS ORDERED: GABA600T12 PO (11:59)
[2022-02-18] MEDS ORDERED: LEVO175T7 PO (11:59)
[2022-02-18] MEDS ORDERED: GABA-532 PO (11:59)
[2022-02-18] MEDS ORDERED: OXYC1TAB8 MT (11:59)
[2022-02-18] MEDS ORDERED: BACL10TA PO (11:59)
[2022-02-18] MEDS ORDERED: TAMS-12 PO (11:59)
[2022-02-18] MEDS ORDERED: SERT25TA5 PO (11:59)
[2022-02-18] MEDS ORDERED: TRAZ-252 PO (11:59)
[2022-02-18] MEDS ORDERED: DABI150C PO (11:59)
== END 2022-02-18 23:59 | disposition home health service (06) ==
LOC: WOU 09:17
PROVIDERS: ATTEND Podiatrist Foot & Ankle Surgery
DX: I70.233 Atherosclerosis of native arteries of right leg with ulceration of ankle (principal); L97.312 Non-pressure chronic ulcer of right ankle with fat layer exposed; L03.115 Cellulitis of right lower limb; G35 Multiple sclerosis; L60.3 Nail dystrophy; M25.571 Pain in right ankle and joints of right foot; R26.2 Difficulty in walking, not elsewhere classified; Z79.01 Long term (current) use of anticoagulants; Z79.899 Other long term (current) drug therapy
CPT/HCPCS: 82962; G0463

== ENCOUNTER 2022-02-18 10:06 | Inpatient (IN) | payer MEDICARE, OTHER ==
[~2022-02-18] VITALS: Ht 175.3 cm; Wt 99.8 kg
--- NOTE | 2022-02-18 11:32 | NUR ---
DR ESTEVES AT BEDSIDE
--- NOTE | 2022-02-18 11:37 | NUR ---
URINE SAMPLE COLLECTED AND SENT TO LAB
--- NOTE | 2022-02-18 11:42 | NUR ---
SISTER (SERGIO ROBERTS) [phone]
--- NOTE | 2022-02-18 11:45 | NUR ---
RAPID COVID SWAB COLLECTED AND SENT TO LAB
[2022-02-18 11:50] LABS: BASOPHILS % (AUTO) 0.8 % (0.0-2.0); EOSINOPHILS % (AUTO) 3.3 % (0.0-6.0); HEMATOCRIT 40 % (39-51); HEMOGLOBIN 13.2 g/dL (13.5-17.5); LYMPHOCYTES # (AUTO) 1.4 K/uL (0.8-4.8); LYMPHOCYTES % (AUTO) 34.6 % (20.0-44.0); MEAN CORPUSCULAR HGB CONC 34 g/dl (31.0-36.0); MEAN CORPUSCULAR VOLUME 90 fL (80-96); MONOCYTES # (AUTO) 0.4 K/uL (0.1-1.30); MONOCYTES % (AUTO) 10.2 % (2.0-12.0); NEUTROPHILS # (AUTO) 2.1 K/uL (1.8-8.9); NEUTROPHILS % (AUTO) 51.1 % (43.0-81.0); PLATELET COUNT (AUTO) 211 K/uL (150-450); RED BLOOD CELL COUNT(AUTO) 4.41 MIL/uL (4.5-6.0); WHITE BLOOD COUNT (AUTO) 4.2 K/uL (4.3-11.0)
[2022-02-18 11:58] LABS: CALCIUM, SERUM 8.5 mg/dL (8.5-10.1); CARBON DIOXIDE 32 mmol/L (21-32); CHLORIDE 108 mmol/L (98-107); GLUCOSE 86 mg/dL (74-106); POTASSIUM 3.4 mmol/L (3.5-5.1); SODIUM SERUM 145 mmol/L (136-145); UREA NITROGEN, BLOOD 14 mg/dL (7-18)
[2022-02-18] MEDS ORDERED: DABI150C PO (11:59)
[2022-02-18] MEDS ORDERED: OXYC1TAB8 MT (11:59)
[2022-02-18] MEDS ORDERED: TRAZ-252 PO (11:59)
[2022-02-18] MEDS ORDERED: SERT25TA5 PO (11:59)
[2022-02-18] MEDS ORDERED: GABA600T12 PO (11:59)
[2022-02-18] MEDS ORDERED: BACL10TA PO (11:59)
[2022-02-18] MEDS ORDERED: LEVO175T7 PO (11:59)
[2022-02-18] MEDS ORDERED: TAMS-12 PO (11:59)
[2022-02-18] MEDS ORDERED: GABA-532 PO (11:59)
[2022-02-18] MEDS ORDERED: IV NS 0.9% 1,000 ML BAG IV ONE (12:00)
[2022-02-18 12:10] LABS: BILIRUBIN,URINE NEGATIVE (NEGATIVE); COLOR,URINE YELLOW (YELLOW); LEUKOCYTE ESTERASE ,URINE NEGATIVE (NEGATIVE); NITRITE, URINE NEGATIVE (NEGATIVE); PROTEIN,URINE NEGATIVE (NEGATIVE); UGLUCOSE NEGATIVE (NEGATIVE); UROBILINOGEN,URINE 0.2 EU/dL (0.2)
[2022-02-18 12:11] LABS: ALANINE AMINOTRANSFERASE 18 U/L (12-78); ALBUMIN 2.7 g/dL (3.4-5.0); ALKALINE PHOSPHATASE 67 U/L (46-116); ASPARTATE AMINOTRANSFERASE 11 U/L (15-37); BILIRUBIN,DIRECT 0.1 mg/dL (0.0-0.2); BILIRUBIN,TOTAL 0.4 mg/dL (0.2-1.0); TOTAL PROTEIN, SERUM 6.2 g/dL (6.4-8.2)
[2022-02-18 12:35] LABS: BACTERIA,URINE Rare /HPF (None Seen); SQUAMOUS EPITHELIAL CELL,UR Few /HPF (None Seen); WBC,URINE 0-2 /HPF (0-3)
[2022-02-18 12:36] LABS: MUCUS,URINE Moderate /LPF (None Seen)
--- NOTE | 2022-02-18 12:36 | NUR ---
MOVE SHEET SUBMITTED
--- NOTE | 2022-02-18 14:38 | NUR ---
ROOM 309-2
--- NOTE | 2022-02-18 15:09 | NUR ---
REPORT GIVEN TO SOTO JEROME FOR FEROZ
--- NOTE | 2022-02-18 15:25 | NUR ---
RN NOTE- PT IN ROOM 309 / BEGIN ADMIT PROCESS
--- NOTE | 2022-02-18 15:26 | NUR ---
STUDENT RECORDS COORDINATOR NOTE- 66 Y/O MALE PT ADMITTED TO MED SURG RM 309-2 FOR FAILURE TO THRIVE. PT W HX OF MS AND DECLINING STRENGTH OVER LAST TEN DAYS. PT LIVES W FAMILY WHO REPORT PT HAS BEEN EATING LESS AND BECOMING WEAKER DAILY. ON ADMISSION CXR PROVES UNREMARKABLE, UA CLEAR, LABS ARE FAIR AND COVID TEST IS NEG. PT REFUSED ALL COVID VACCINES PER FAMILY. PT IS ALLERGIC TO MORPHINE. HE HAS IV ACCESS TO LAC #18. AOX4. PT HAS AN ONGOING CHRONIC WOUND TO LATERAL RT ANKLE AT [place]. ERYTHEMATOUS, EDEMATOUS AND PAINFUL. PT MADE COMFORTABLE, ORDERS RECEIVED AND COMPLIED WITH. NS AT 75 / HR STARTED. WOUND CARE, PT EVALS ORDERED. SIDE RAILS UP, BED LOCKED, CALL LIGHT CLOSE. CALL W QUESTIONS- SISTER BRAYDEN [phone] MONITOR / ASSIST
[2022-02-18 16:00] VITALS: BP 125/69
[2022-02-18] MEDS ORDERED: POTASSIUM CHLORIDE 20 MEQ TAB.PRT.SR PO ONE (16:00)
[2022-02-18] MEDS ORDERED: ONDANSETRON HCL/PF 4 MG/2 ML VIAL IVP PRN (16:00)
[2022-02-18] MEDS ORDERED: MAG HYDROX/AL HYDROX/SIMETH 30 ML UDC PO PRN (16:00)
[2022-02-18] MEDS ORDERED: oxyCODONE/APAP (5/325 MG) 1 UDTAB TABLET PO PRN (16:00)
[2022-02-18] MEDS ORDERED: MAGNESIUM HYDROXIDE 30 ML UDC PO PRN (16:00)
[2022-02-18] MEDS ORDERED: ACETAMINOPHEN 325 MG TABLET PO PRN (16:00)
[2022-02-18] MEDS ORDERED: Z GUARD REMEDY 4 OZ OINT TP PRN (16:00)
[2022-02-18] MEDS: IV NS 0.9% 1,000 ML IV PRN (16:10)
[2022-02-18] MEDS: DABIGATRAN ETEXILATE MESYLATE 150 MG CAPSULE PO SCH (16:59)
[2022-02-18] MEDS: BACLOFEN (10 MG) 10 MG TABLET PO SCH ×2 (17:00→21:34)
[2022-02-18] MEDS: TAMSULOSIN 0.4 MG CAP.SR.24H PO SCH (17:00)
--- NOTE | 2022-02-18 18:35 | NUR ---
RN CLOSING NOTE- PT ALERT ORIENTED PERSON PLACE POURPOSE. COMFORTABLE, PO INTAKE GOOD. NEEDS ATTENDED, VS STABLE. DRESSING APPLIED TO RT ANKLE. SIDE RAILS UP, BED LOCKED, CALL LIGHT IN REACH.
--- NOTE | 2022-02-18 19:30 | NUR ---
RN OPENING NOTES RECEIVED PT IN BED, AWAKE, FAMILY AT BEDSIDE. AOx3, ABLE TO MAKE NEEDS KNOWN. ON RA AN TOLERATING WELL. NO SOB NOTED. NO S/SX OF RESPIRATORY DISTRESS NOTED. IV ACCESS IN LAC #18 RUNNING NS @ 75 ML/HR. SAFETY PRECAUTIONS IN PLCACE: BED IN LOWEST, LOCKED POSITION, SIDERAILS UPx2, AND BRAKES ON. TABLE AND CALL LIGHT WITHIN REACH. WILL CONTINUE TO MONITOR.
[2022-02-18 20:00] VITALS: BP 120/76
[2022-02-18] MEDS: GABAPENTIN 300 MG CAPSULE PO SCH (21:35)
[2022-02-18] MEDS: TRAZODONE 50 MG TABLET PO SCH (21:35)
[2022-02-19] MEDS: oxyCODONE/APAP (5/325 MG) 1 UDTAB TABLET PO PRN ×3 (00:14→18:58)
--- NOTE | 2022-02-19 00:15 | NUR ---
RN NOTES ADMINISTERED PERCOCET PER MD ORDER. VS WNL. WILL CONTINUE TO MONITOR.
[2022-02-19] MEDS: IV NS 0.9% 1,000 ML IV PRN (05:05)
--- NOTE | 2022-02-19 06:46 | NUR ---
RN CLOSING NOTES PT IN BED, ASLEEP, AWAKES TO VERBAL STIMULI. AOx3, ABLE TO MAKE NEEDS KNOWN. ON RA AN TOLERATING WELL. NO SOB NOTED. NO S/SX OF RESPIRATORY DISTRESS NOTED. IV ACCESS IN LAC #18 RUNNING NS @ 75 ML/HR. ALL ORDERS CARRIED OUT. ALL NEEDS MET. PT KEPT CLEAN AND DRY. SAFETY PRECAUTIONS IN PLACE: BED IN LOWEST, LOCKED POSITION, SIDERAILS UPx2, AND BRAKES ON. TABLE AND CALL LIGHT WITHIN REACH. WILL ENDORSE TO ONCOMING SHIFT FOR FEROZ.
[2022-02-19 07:28] LABS: BASOPHILS % (AUTO) 0.9 % (0.0-2.0); EOSINOPHILS % (AUTO) 3.2 % (0.0-6.0); HEMATOCRIT 38 % (39-51); HEMOGLOBIN 12.6 g/dL (13.5-17.5); LYMPHOCYTES # (AUTO) 1.7 K/uL (0.8-4.8); LYMPHOCYTES % (AUTO) 41.9 % (20.0-44.0); MEAN CORPUSCULAR HGB CONC 33 g/dl (31.0-36.0); MEAN CORPUSCULAR VOLUME 90 fL (80-96); MONOCYTES # (AUTO) 0.4 K/uL (0.1-1.30); MONOCYTES % (AUTO) 8.8 % (2.0-12.0); NEUTROPHILS # (AUTO) 1.8 K/uL (1.8-8.9); NEUTROPHILS % (AUTO) 45.2 % (43.0-81.0); PLATELET COUNT (AUTO) 197 K/uL (150-450); RED BLOOD CELL COUNT(AUTO) 4.23 MIL/uL (4.5-6.0)
[2022-02-19 08:00] VITALS: BP 121/68
--- NOTE | 2022-02-19 08:37 | NUR ---
WOUND CARE CONSULT: PT PRESENTS WITH RT ANKLE WOUND, WHICH IS WRAPPED AT THIS TIME AND LOWER LEG REDNESS, PRESENT ON ADMISSION. PT IS CONTINENT. DR RAZA NOTIFIED OF DPM CONSULT REQUEST. DISCUSSED SKIN PROTECTION WITH NURSING STAFF. IN AGREEMENT WITH PLAN OF CARE.
[2022-02-19 08:59] LABS: CALCIUM, SERUM 8.2 mg/dL (8.5-10.1); CREATININE 0.8 mg/dL (0.6-1.3); PHOSPHORUS 3.1 mg/dL (2.5-4.9); POTASSIUM 3.8 mmol/L (3.5-5.1)
[2022-02-19] MEDS: GABAPENTIN 100 MG CAPSULE PO SCH (09:09)
[2022-02-19] MEDS: TAMSULOSIN 0.4 MG CAP.SR.24H PO SCH ×2 (09:09→16:57)
[2022-02-19] MEDS: SERTRALINE HCL 25 MG TABLET PO SCH (09:10)
[2022-02-19] MEDS: LEVOTHYROXINE SODIUM 50 MCG TABLET PO SCH (09:10)
[2022-02-19] MEDS: BACLOFEN (10 MG) 10 MG TABLET PO SCH ×4 (09:11→21:24)
[2022-02-19] MEDS: DABIGATRAN ETEXILATE MESYLATE 150 MG CAPSULE PO SCH ×2 (09:11→16:57)
--- NOTE | 2022-02-19 09:30 | NUR ---
MS RN OPENING NOTES RECEIVED PATIENT ON BED AWAKE AND A/O X4. ON ROOM AIR TOLERATING WELL. NO SOB NOTED. NOT IN DISTRESS. WITH NO COMPLAINTS OF PAIN OR DISCOMFORT AT THIS TIME. WITH IV ACCESS AT LEFT AC G18 WITH IVF NS AT 75ML/HR INFUSING WELL. SAFETY MEASURES IN PLACED. CALL LIGHT WITHIN REACH. BED ON LOWEST LOCKED POSITION, SIDE RAILS UP X2. WILL CONTINUE TO MONITOR.
--- NOTE | 2022-02-19 11:59 | NUR ---
RN NOTES RECEIVED ENDORSEMENT FROM JUSTUS MENDOZA. PATIENT IN BED AWAKE. A/O X3-4. NO COMPLAINTS VERBALIZED AT THIS TIME. ON RA WITH NO SOB OR RESP DISTRESS NOTED. SAFETY PRECAUTIONS IN PLACE. WILL CONTINUE TO MONITOR.
--- NOTE | 2022-02-19 12:00 | NUR ---
RN NOTE ENDORSED PATIENT TO JUSTUS BALDERAS.
--- NOTE | 2022-02-19 12:01 | NUR ---
RN NOTES PATIENT TRANSFERRED TO MRI
[2022-02-19] MEDS ORDERED: GADOTERATE MEGLUMINE 10 MMOL/20 ML VIAL IV ONE (13:55)
--- NOTE | 2022-02-19 14:15 | NUR ---
RN NOTES REPORTED BY CHARGE NURSE THAT PATIENT WAS ASSISTED TO THE GROUND UPON TRANSFER TO BATHROOM AFTER STATING, "I AM FEELING WEAK" WHILE AMBULATING. PATIENT WAS ASSISTED TO THE GROUND BY PIPE STRAIGHTENER AND NO INJURIES WERE NOTED. UPON ASSESSMENT, VSS. FULL ROM BOTH UPPER AND LOWER EXT NOTED. NO COMPLAINT OF PAIN AT THIS TIME. SECOND NURSE CALLED TO HELP TRANSFER PATIENT BACK INTO BED. SAFETY AND FALL PRECAUTIONS IN PLACE AND WILL CONTINUE TO MONITOR
--- NOTE | 2022-02-19 14:45 | NUR ---
RN NOTES PATIENT AWAKE IN BED. A/OX4. NO COMPLAINT OF PAIN AT THIS TIME. WILL CONTINUE TO MONITOR
--- NOTE | 2022-02-19 15:00 | NUR ---
RN NOTES SEEN BY DR RAZA. RIGHT HEEL DRESSING CHANGED AND NEW ORDERS FOR WOUND CARE CARRIED OUT.
--- NOTE | 2022-02-19 18:35 | NUR ---
RN CLOSING NOTES PATIENT IN BED RESTING AT THIS TIME. A/O X4. ON RA WITH NO S/S OF SOB OR DISTRESS NOTED. DENIES PAIN AT THIS TIME. L AC G#18 INTACT AND PATENT WITH NS RUNNING @ 75ML/HR. DRESSING AT RIGHT HEEL C/D/I. SAFETY PRECAUTIONS IN PLACE. WILL ENDORSE TO THE PHYSICIAN ASSISTANT PRIMARY CARE NURSE FOR FEROZ
--- NOTE | 2022-02-19 19:20 | NUR ---
RN NOTE PT AWAKE IN BED, A/OX4, ABLE TO MAKE NEEDS KNOWN. DENIES PAIN AT THIS TIME. RESPIRATIONS EVEN/UNLABORED. IV SITE L-AC #18G INTACT/PATENT, INFUSING NS @75ML/HR. PT WITH R-HEEL DRESSING C/D/I. PT IN NO ACUTE DISTRESS. SAFETY MEASURES IN PLACE. WILL CONT TO MONITOR.
[2022-02-19 20:12] VITALS: BP 130/77
[2022-02-19] MEDS: GABAPENTIN 300 MG CAPSULE PO SCH (21:24)
[2022-02-19] MEDS: TRAZODONE 50 MG TABLET PO SCH (21:24)
[2022-02-20] MEDS: IV NS 0.9% 1,000 ML IV PRN ×2 (00:20→02:26)
[2022-02-20] MEDS: oxyCODONE/APAP (5/325 MG) 1 UDTAB TABLET PO PRN ×2 (02:26→11:20)
[2022-02-20 06:38] LABS: BASOPHILS % (AUTO) 0.8 % (0.0-2.0); HEMATOCRIT 37 % (39-51); HEMOGLOBIN 12.5 g/dL (13.5-17.5); LYMPHOCYTES # (AUTO) 1.9 K/uL (0.8-4.8); LYMPHOCYTES % (AUTO) 47.2 % (20.0-44.0); MEAN CORPUSCULAR HGB CONC 34 g/dl (31.0-36.0); MEAN CORPUSCULAR VOLUME 90 fL (80-96); MONOCYTES # (AUTO) 0.4 K/uL (0.1-1.30); MONOCYTES % (AUTO) 9.6 % (2.0-12.0); NEUTROPHILS # (AUTO) 1.6 K/uL (1.8-8.9); NEUTROPHILS % (AUTO) 39.4 % (43.0-81.0); PLATELET COUNT (AUTO) 213 K/uL (150-450); RED BLOOD CELL COUNT(AUTO) 4.17 MIL/uL (4.5-6.0)
[2022-02-20 06:40] LABS: CALCIUM, SERUM 8.2 mg/dL (8.5-10.1); CREATININE 0.8 mg/dL (0.6-1.3); POTASSIUM 3.8 mmol/L (3.5-5.1)
--- NOTE | 2022-02-20 07:10 | NUR ---
RN NOTE PT RESTING IN BED, EASILY AROUSABLE TO STIMULI. HE DENIES PAIN AT THIS TIME. RESPIRATIONS EVEN/UNLABORED. PT SLEPT WELL DURING THE NIGHT. ONGOING IVF NS @75ML/HR AND ERNESTO WELL. PT IN NO ACUTE DISTRESS. SAFETY MEASURES MAINTAINED.
--- NOTE | 2022-02-20 07:20 | NUR ---
RN OPENING NOTES RECEIVED PATIENT RESTING IN BED. A/O X3-4. DENIES PAIN AT THIS TIME. RESPIRATIONS EVEN AND UNLABORED ON RA. ONGOING IVF NS @75ML/HR AND TOLERATING WELL. PATIENT AWARE OF PLAN OF THE DAY. SAFETY PRECAUTIONS IN PLACE. WILL CONTINUE TO MONITOR
[2022-02-20] MEDS: LEVOTHYROXINE SODIUM 50 MCG TABLET PO SCH (08:44)
[2022-02-20] MEDS: SERTRALINE HCL 25 MG TABLET PO SCH (08:45)
[2022-02-20] MEDS: TAMSULOSIN 0.4 MG CAP.SR.24H PO SCH (08:45)
[2022-02-20] MEDS: GABAPENTIN 100 MG CAPSULE PO SCH (08:45)
[2022-02-20] MEDS: DABIGATRAN ETEXILATE MESYLATE 150 MG CAPSULE PO SCH (08:45)
[2022-02-20] MEDS: BACLOFEN (10 MG) 10 MG TABLET PO SCH ×2 (08:45→13:13)
[2022-02-20] MEDS ORDERED: THERAHONEY GEL 1.5 OZ TUBE TP SCH (09:00)
--- NOTE | 2022-02-20 16:37 | NUR ---
RN NOTES PATIENT MEDICALLY STABLE FOR DISCHARGE. VSS. DISCHARGE INSTRUCTIONS GIVEN TO PATIENT AND PATIENT VERBALIZED UNDERSTANDING. EXIT PACKET PROVIDED. ALL BELONGINGS ACCOUNTED FOR AND DOCUMENTED. PATIENT REFUSING TO HAVE PICTURE OF RIGHT ANKLE WOUND, STATES "TOO PAINFUL TO RE-DRESS". WOUND WAS SEEN BY LUZ MARINA YESTERDAY. IV ACCESS REMOVED AND ID BAND REMOVED.
--- NOTE | 2022-02-20 16:46 | NUR ---
RECORD SYSTEMS ANALYST NOTES PATIENT LEFT HOSPITAL ON GURNEY VIA AMBULANCE ACCOMPANIED BY 2 EMT.
== END 2022-02-20 16:45 | DRG 59 ==
LOC: ER 10:10 → MED 14:40
PROVIDERS: ADMIT Internal Medicine; ATTEND Internal Medicine
DX: G35 Multiple sclerosis (principal); D68.59 Other primary thrombophilia; G62.9 Polyneuropathy, unspecified; Z20.822 Contact with and (suspected) exposure to COVID-19; Z79.899 Other long term (current) drug therapy; Z88.5 Allergy status to narcotic agent; N40.0 Benign prostatic hyperplasia without lower urinary tract symptoms; Z74.09 Other reduced mobility; E03.9 Hypothyroidism, unspecified; Z79.890 Hormone replacement therapy; S91.001A Unspecified open wound, right ankle, initial encounter; X58.XXXA Exposure to other specified factors, initial encounter; Y92.9 Unspecified place or not applicable
CPT/HCPCS: 36415; 70553-TC; 71045-TC; 72156-TC; 80048-TC; 80076-TC; 81001; 83735-TC; 83880; 84100-TC; 84484-TC; 85025-TC; 87081-TC; 87086-TC; 97116-TC; 97530-TC; A9575; C9803; G0378; J7030

== ENCOUNTER 2022-03-11 09:50 | Outpatient (CLI) | payer MEDICARE, OTHER ==
[~2022-03-11 09:50] MED LIST changes: +BACL10TA PO; -CEPH500C2 PO; +DABI150C PO; +GABA-532 PO; +GABA600T12 PO; +LEVO175T7 PO; -ONDA4TAB5 PO; +OXYC1TAB8 MT; +SERT25TA5 PO; -SULF1TAB48 PO; +TAMS-12 PO; +TRAZ-252 PO
[2022-03-11] MEDS ORDERED: HYDROCORTISONE 1% CREAM 28.35 GM TUBE TP ONE (10:36)
[2022-03-11] MEDS ORDERED: COLLAGENASE 5 GM TUBE UD TP ONE (10:36)
== END 2022-03-11 23:59 | disposition home health service (06) ==
LOC: WOU 09:50
PROVIDERS: ATTEND Podiatrist Foot & Ankle Surgery
DX: I70.233 Atherosclerosis of native arteries of right leg with ulceration of ankle (principal); L97.312 Non-pressure chronic ulcer of right ankle with fat layer exposed; G35 Multiple sclerosis; L60.3 Nail dystrophy; M25.571 Pain in right ankle and joints of right foot; Z79.01 Long term (current) use of anticoagulants; Z79.899 Other long term (current) drug therapy
CPT/HCPCS: 11043

== ENCOUNTER 2022-04-05 09:00 | Outpatient (CLI) | payer MEDICARE, OTHER ==
[2022-04-05] MEDS ORDERED: LIDOCAINE SOLN 4% 50 ML BOTTLE ONE (09:03)
[2022-04-05] MEDS ORDERED: CLOTRIMAZOLE 1% 15 GM TUBE TP ONE (09:26)
[2022-04-05] MEDS ORDERED: UREA 10% -AHA 4% CREAM 57 GM TUBE ONE (09:27)
== END 2022-04-05 23:59 | disposition home health service (06) ==
LOC: WOU 09:00
PROVIDERS: ATTEND Podiatrist Foot & Ankle Surgery
DX: I70.233 Atherosclerosis of native arteries of right leg with ulceration of ankle (principal); L97.312 Non-pressure chronic ulcer of right ankle with fat layer exposed; L89.526 Pressure-induced deep tissue damage of left ankle; G35 Multiple sclerosis; L60.3 Nail dystrophy; M25.571 Pain in right ankle and joints of right foot; Z79.01 Long term (current) use of anticoagulants
CPT/HCPCS: 11042

== ENCOUNTER 2022-04-22 09:15 | Outpatient (CLI) | payer MEDICARE, OTHER | END 2022-04-22 23:59 | disposition home health service (06) | LOC: WOU 09:15 | PROVIDERS: ATTEND Podiatrist Foot & Ankle Surgery | DX: I70.233 Atherosclerosis of native arteries of right leg with ulceration of ankle (principal); L97.312 Non-pressure chronic ulcer of right ankle with fat layer exposed; S90.02XD Contusion of left ankle, subsequent encounter; X58.XXXD Exposure to other specified factors, subsequent encounter; G35 Multiple sclerosis; L60.3 Nail dystrophy; R26.2 Difficulty in walking, not elsewhere classified; M25.571 Pain in right ankle and joints of right foot; Z86.718 Personal history of other venous thrombosis and embolism; Z79.02 Long term (current) use of antithrombotics/antiplatelets; E03.9 Hypothyroidism, unspecified; G62.9 Polyneuropathy, unspecified; N40.0 Benign prostatic hyperplasia without lower urinary tract symptoms; I10 Essential (primary) hypertension; M48.02 Spinal stenosis, cervical region | CPT/HCPCS: 11042 ==

== ENCOUNTER 2022-05-06 09:15 | Outpatient (CLI) | payer MEDICARE, OTHER | END 2022-05-06 23:59 | disposition home health service (06) | LOC: WOU 09:15 | PROVIDERS: ATTEND Podiatrist Foot & Ankle Surgery | DX: I70.233 Atherosclerosis of native arteries of right leg with ulceration of ankle (principal); L97.312 Non-pressure chronic ulcer of right ankle with fat layer exposed; L89.526 Pressure-induced deep tissue damage of left ankle; L03.115 Cellulitis of right lower limb; G35 Multiple sclerosis; R26.2 Difficulty in walking, not elsewhere classified; M25.571 Pain in right ankle and joints of right foot; Z79.01 Long term (current) use of anticoagulants; Z79.899 Other long term (current) drug therapy | CPT/HCPCS: 11042 ==

== ENCOUNTER 2022-05-13 10:30 | Outpatient (CLI) | payer MEDICARE, OTHER | END 2022-05-13 23:59 | disposition home health service (06) | LOC: WOU 10:30 | PROVIDERS: ATTEND Podiatrist Foot & Ankle Surgery | DX: I70.233 Atherosclerosis of native arteries of right leg with ulceration of ankle (principal); L97.312 Non-pressure chronic ulcer of right ankle with fat layer exposed; L89.526 Pressure-induced deep tissue damage of left ankle; G35 Multiple sclerosis; R26.2 Difficulty in walking, not elsewhere classified; L60.3 Nail dystrophy; M25.571 Pain in right ankle and joints of right foot; Z79.899 Other long term (current) drug therapy; Z79.01 Long term (current) use of anticoagulants | CPT/HCPCS: 11042 ==

== ENCOUNTER 2022-05-20 10:35 | Outpatient (CLI) | payer MEDICARE, OTHER ==
[2022-05-20] MEDS ORDERED: LIDOCAINE SOLN 4% 50 ML BOTTLE ONE (10:50)
== END 2022-05-20 23:59 | disposition home health service (06) ==
LOC: WOU 10:35
PROVIDERS: ATTEND Podiatrist Foot & Ankle Surgery
DX: I70.233 Atherosclerosis of native arteries of right leg with ulceration of ankle (principal); L97.312 Non-pressure chronic ulcer of right ankle with fat layer exposed; L89.526 Pressure-induced deep tissue damage of left ankle; M25.571 Pain in right ankle and joints of right foot; G35 Multiple sclerosis; L60.3 Nail dystrophy; Z79.899 Other long term (current) drug therapy; Z79.01 Long term (current) use of anticoagulants
CPT/HCPCS: 11042

== ENCOUNTER 2022-06-03 10:25 | Outpatient (CLI) | payer MEDICARE, OTHER | END 2022-06-03 23:59 | disposition home health service (06) | LOC: WOU 10:25 | PROVIDERS: ATTEND Podiatrist Foot & Ankle Surgery | DX: I70.233 Atherosclerosis of native arteries of right leg with ulceration of ankle (principal); L97.312 Non-pressure chronic ulcer of right ankle with fat layer exposed; L89.526 Pressure-induced deep tissue damage of left ankle; G35 Multiple sclerosis; R26.2 Difficulty in walking, not elsewhere classified; M25.571 Pain in right ankle and joints of right foot; Z79.01 Long term (current) use of anticoagulants; Z79.899 Other long term (current) drug therapy | CPT/HCPCS: G0463 ==

== ENCOUNTER 2022-06-08 12:00 | Outpatient (CLI) | payer MEDICARE, OTHER | END 2022-06-08 23:59 | disposition home or self-care (01) | LOC: MSC 12:00 | PROVIDERS: ATTEND Anesthesiology | DX: G89.4 Chronic pain syndrome (principal); M54.50 Low back pain, unspecified; M40.299 Other kyphosis, site unspecified; G35 Multiple sclerosis; G82.22 Paraplegia, incomplete; G82.20 Paraplegia, unspecified; Z99.3 Dependence on wheelchair; M79.2 Neuralgia and neuritis, unspecified; Z79.891 Long term (current) use of opiate analgesic; L97.901 Non-pressure chronic ulcer of unspecified part of unspecified lower leg limited to breakdown of skin ==

== ENCOUNTER 2022-07-01 09:12 | Outpatient (CLI) | payer MEDICARE, OTHER ==
[2022-07-01] MEDS ORDERED: LIDOCAINE SOLN 4% 50 ML BOTTLE ONE (09:21)
[2022-07-01] MEDS ORDERED: HYDROCORTISONE 1% CREAM 28.35 GM TUBE TP ONE (09:40)
[2022-07-01] MEDS ORDERED: GENTAMICIN 0.1% CREAM 15 GM TUBE ONE (09:46)
[2022-07-01] MEDS ORDERED: MUPIROCIN 2% CREAM 15 GM TUBE TP ONE (09:46)
== END 2022-07-01 23:59 | disposition home health service (06) ==
LOC: WOU 09:12
PROVIDERS: ATTEND Podiatrist Foot & Ankle Surgery
DX: I70.233 Atherosclerosis of native arteries of right leg with ulceration of ankle (principal); L97.312 Non-pressure chronic ulcer of right ankle with fat layer exposed; L03.115 Cellulitis of right lower limb; G35 Multiple sclerosis; R26.2 Difficulty in walking, not elsewhere classified; M25.571 Pain in right ankle and joints of right foot; L60.3 Nail dystrophy; Z79.01 Long term (current) use of anticoagulants; Z79.899 Other long term (current) drug therapy
CPT/HCPCS: 11042; 87070-TC; 87186-TC

== ENCOUNTER 2022-07-08 09:06 | Outpatient (CLI) | payer MEDICARE, OTHER ==
[2022-07-08] MEDS ORDERED: MUPIROCIN 2% CREAM 15 GM TUBE TP ONE (09:09)
== END 2022-07-08 23:59 | disposition home health service (06) ==
LOC: WOU 09:06
PROVIDERS: ATTEND Podiatrist Foot & Ankle Surgery
DX: I70.233 Atherosclerosis of native arteries of right leg with ulceration of ankle (principal); L97.312 Non-pressure chronic ulcer of right ankle with fat layer exposed; R26.2 Difficulty in walking, not elsewhere classified; L60.3 Nail dystrophy; G35 Multiple sclerosis; M25.571 Pain in right ankle and joints of right foot; Z79.899 Other long term (current) drug therapy; Z79.01 Long term (current) use of anticoagulants
CPT/HCPCS: 11042

== ENCOUNTER → 2022-07-12 | Outpatient (CLI) | payer MEDICARE, OTHER | END | disposition home or self-care (01) | LOC: WOU 12:00 | PROVIDERS: ATTEND Registered Nurse | DX: L97.319 Non-pressure chronic ulcer of right ankle with unspecified severity (principal); L08.9 Local infection of the skin and subcutaneous tissue, unspecified; B95.8 Unspecified staphylococcus as the cause of diseases classified elsewhere; B96.1 Klebsiella pneumoniae [K. pneumoniae] as the cause of diseases classified elsewhere; G35 Multiple sclerosis; G62.9 Polyneuropathy, unspecified; E03.9 Hypothyroidism, unspecified; N40.0 Benign prostatic hyperplasia without lower urinary tract symptoms | CPT/HCPCS: G0463 ==

== ENCOUNTER 2022-07-15 11:54 | Outpatient (CLI) | payer MEDICARE, OTHER ==
[~2022-07-15 11:54] MED LIST changes: +HYDROCORTISONE 1% CREAM 28.35 GM TUBE TP ONE; +LIDOCAINE SOLN 4% 50 ML BOTTLE ONE; +UREA 10% -AHA 4% CREAM 57 GM TUBE ONE
== END 2022-07-15 23:59 | disposition home health service (06) ==
LOC: WOU 11:54
PROVIDERS: ATTEND Podiatrist Foot & Ankle Surgery
DX: I70.233 Atherosclerosis of native arteries of right leg with ulceration of ankle (principal); L97.312 Non-pressure chronic ulcer of right ankle with fat layer exposed; G35 Multiple sclerosis; M25.571 Pain in right ankle and joints of right foot; R26.2 Difficulty in walking, not elsewhere classified; L60.3 Nail dystrophy; Z79.899 Other long term (current) drug therapy; Z79.01 Long term (current) use of anticoagulants
CPT/HCPCS: 11042

== ENCOUNTER 2022-07-27 13:00 | Outpatient (CLI) | payer MEDICARE, OTHER ==
[~2022-07-27 13:00] MED LIST changes: -HYDROCORTISONE 1% CREAM 28.35 GM TUBE TP ONE; -LIDOCAINE SOLN 4% 50 ML BOTTLE ONE; -UREA 10% -AHA 4% CREAM 57 GM TUBE ONE
== END 2022-07-27 23:59 | disposition home or self-care (01) ==
LOC: MSC 13:00
PROVIDERS: ATTEND Anesthesiology
DX: M54.50 Low back pain, unspecified (principal); M40.299 Other kyphosis, site unspecified; M79.2 Neuralgia and neuritis, unspecified; G89.4 Chronic pain syndrome; G35 Multiple sclerosis; G82.22 Paraplegia, incomplete; G82.20 Paraplegia, unspecified; L97.901 Non-pressure chronic ulcer of unspecified part of unspecified lower leg limited to breakdown of skin; Z79.891 Long term (current) use of opiate analgesic; Z79.899 Other long term (current) drug therapy

== ENCOUNTER 2022-07-29 09:05 | Outpatient (CLI) | payer MEDICARE, OTHER ==
[2022-07-29] MEDS ORDERED: LIDOCAINE SOLN 4% 50 ML BOTTLE ONE (09:10)
[2022-07-29] MEDS ORDERED: CADEXOMER IODINE UD 5 GM TUBE ONE (09:40)
== END 2022-07-29 23:59 | disposition home health service (06) ==
LOC: WOU 09:05
PROVIDERS: ATTEND Podiatrist Foot & Ankle Surgery
DX: I70.233 Atherosclerosis of native arteries of right leg with ulceration of ankle (principal); L97.312 Non-pressure chronic ulcer of right ankle with fat layer exposed; G35 Multiple sclerosis; L60.3 Nail dystrophy; R26.2 Difficulty in walking, not elsewhere classified; M25.571 Pain in right ankle and joints of right foot; Z79.899 Other long term (current) drug therapy; Z79.01 Long term (current) use of anticoagulants
CPT/HCPCS: 11042

== ENCOUNTER 2022-08-05 09:41 | Outpatient (CLI) | payer MEDICARE, OTHER ==
[2022-08-05 11:04] LABS: BASOPHILS # (AUTO) 0.1 K/uL (0.0-0.2); BASOPHILS % (AUTO) 1.1 % (0.0-2.0); EOSINOPHILS % (AUTO) 5.6 % (0.0-6.0); HEMATOCRIT 41 % (39-51); HEMOGLOBIN 13.3 g/dL (13.5-17.5); LYMPHOCYTES % (AUTO) 38.9 % (20.0-44.0); MEAN CORPUSCULAR HGB CONC 33 g/dl (31.0-36.0); MEAN CORPUSCULAR VOLUME 90 fL (80-96); MONOCYTES # (AUTO) 0.4 K/uL (0.1-1.30); MONOCYTES % (AUTO) 7.9 % (2.0-12.0); NEUTROPHILS # (AUTO) 2.4 K/uL (1.8-8.9); NEUTROPHILS % (AUTO) 46.5 % (43.0-81.0); PLATELET COUNT (AUTO) 258 K/uL (150-450); RED BLOOD CELL COUNT(AUTO) 4.52 MIL/uL (4.5-6.0); WHITE BLOOD COUNT (AUTO) 5.1 K/uL (4.3-11.0)
[2022-08-05 11:44] LABS: CALCIUM, SERUM 8.3 mg/dL (8.5-10.1); CREATININE 1.2 mg/dL (0.6-1.3); POTASSIUM 3.7 mmol/L (3.5-5.1)
== END 2022-08-05 23:59 | disposition home or self-care (01) ==
LOC: LAB 09:41
PROVIDERS: ATTEND Podiatrist Foot & Ankle Surgery
DX: Z01.818 Encounter for other preprocedural examination (principal); I70.0 Atherosclerosis of aorta
CPT/HCPCS: 36415; 71045-TC; 80048-TC; 85025-TC; 85610-TC; 85730-TC

== ENCOUNTER 2022-08-05 09:46 | Outpatient (CLI) | payer MEDICARE, OTHER ==
[2022-08-05] MEDS ORDERED: LIDOCAINE SOLN 4% 50 ML BOTTLE ONE (09:47)
[2022-08-05] MEDS ORDERED: UREA 10% -AHA 4% CREAM 57 GM TUBE ONE (10:29)
[2022-08-05] MEDS ORDERED: CADEXOMER IODINE UD 5 GM TUBE ONE (13:08)
== END 2022-08-05 23:59 | disposition home health service (06) ==
LOC: WOU 09:46
PROVIDERS: ATTEND Podiatrist Foot & Ankle Surgery
DX: I70.233 Atherosclerosis of native arteries of right leg with ulceration of ankle (principal); L97.312 Non-pressure chronic ulcer of right ankle with fat layer exposed; G35 Multiple sclerosis; L60.3 Nail dystrophy; R26.2 Difficulty in walking, not elsewhere classified; M25.571 Pain in right ankle and joints of right foot; M25.572 Pain in left ankle and joints of left foot; Z79.01 Long term (current) use of anticoagulants; Z79.899 Other long term (current) drug therapy
CPT/HCPCS: G0463

== ENCOUNTER 2022-08-09 10:22 | Outpatient (CLI) | payer MEDICARE, OTHER | END 2022-08-09 23:59 | disposition home or self-care (01) | LOC: LAB 10:22 | PROVIDERS: ATTEND Podiatrist Foot & Ankle Surgery | DX: Z01.812 Encounter for preprocedural laboratory examination (principal); Z20.822 Contact with and (suspected) exposure to COVID-19 | CPT/HCPCS: U0003; C9803 ==

== ENCOUNTER 2022-08-12 05:55 | Day surgery (SDC) | payer MEDICARE, OTHER ==
[2022-08-12] MEDS ORDERED: VANCOMYCIN 1 GM VIAL ONE (06:51)
[2022-08-12] MEDS ORDERED: LIDOCAINE 1% INJ 50 ML MDV IJ ONE (06:51)
[2022-08-12] MEDS ORDERED: BUPIVACAINE 0.25% 75 MG/30 ML VIAL ONE (06:51)
[2022-08-12] MEDS ORDERED: HYDROMORPHONE INJ 2 MG/ML DISP.SYRIN ONE (07:30)
[2022-08-12] MEDS ORDERED: BUPIVACAINE 0.5 % PF 150 MG/30 ML VIAL ONE (07:31)
[2022-08-12] MEDS ORDERED: KETOROLAC TROMETHAMINE INJ 30 MG/ML VIAL ONE (08:42)
[2022-08-12] MEDS ORDERED: HYDROCODONE/APAP 5/325MG TABLET ONE (09:39)
== END 2022-08-12 10:00 | disposition home or self-care (01) ==
LOC: DS 05:55
PROVIDERS: ATTEND Podiatrist Foot & Ankle Surgery
DX: I70.233 Atherosclerosis of native arteries of right leg with ulceration of ankle (principal); F32.9 Major depressive disorder, single episode, unspecified; Z87.442 Personal history of urinary calculi; Z86.718 Personal history of other venous thrombosis and embolism; E89.0 Postprocedural hypothyroidism; Z90.49 Acquired absence of other specified parts of digestive tract; Z98.890 Other specified postprocedural states; Z79.899 Other long term (current) drug therapy
CPT/HCPCS: 11043; J0690; J3490 ×3; J1100; J2704; J1170; J1885; J2405; J7030; A6209; J3370

== ENCOUNTER 2022-08-17 13:00 | Outpatient (CLI) | payer MEDICARE, OTHER | END 2022-08-17 23:59 | disposition home or self-care (01) | LOC: MSC 13:00 | PROVIDERS: ATTEND Anesthesiology | DX: G89.29 Other chronic pain (principal); M54.50 Low back pain, unspecified; M40.299 Other kyphosis, site unspecified; M79.604 Pain in right leg; G35 Multiple sclerosis; G82.22 Paraplegia, incomplete; G82.20 Paraplegia, unspecified; M79.2 Neuralgia and neuritis, unspecified; L97.901 Non-pressure chronic ulcer of unspecified part of unspecified lower leg limited to breakdown of skin; Z98.890 Other specified postprocedural states; Z79.891 Long term (current) use of opiate analgesic ==

== ENCOUNTER 2022-08-19 08:54 | Outpatient (CLI) | payer MEDICARE, OTHER ==
[2022-08-19] MEDS ORDERED: LIDOCAINE SOLN 4% 50 ML BOTTLE ONE (08:55)
[2022-08-19] MEDS ORDERED: BACI/NEOM/POLY B OINT PKT 1 UDPKT PACKET ONE (09:34)
== END 2022-08-19 23:59 | disposition home health service (06) ==
LOC: WOU 08:54
PROVIDERS: ATTEND Podiatrist Foot & Ankle Surgery
DX: I70.233 Atherosclerosis of native arteries of right leg with ulceration of ankle (principal); L97.312 Non-pressure chronic ulcer of right ankle with fat layer exposed; S91.331A Puncture wound without foreign body, right foot, initial encounter; W45.8XXA Other foreign body or object entering through skin, initial encounter; Y93.89 Activity, other specified; Y92.89 Other specified places as the place of occurrence of the external cause; G35 Multiple sclerosis; L60.3 Nail dystrophy; M25.572 Pain in left ankle and joints of left foot; M25.571 Pain in right ankle and joints of right foot; R26.2 Difficulty in walking, not elsewhere classified; I10 Essential (primary) hypertension
CPT/HCPCS: 11042

== ENCOUNTER 2022-08-26 08:57 | Outpatient (CLI) | payer MEDICARE, OTHER ==
[2022-08-26] MEDS ORDERED: LIDOCAINE SOLN 4% 50 ML BOTTLE ONE (08:58)
== END 2022-08-26 23:59 | disposition home health service (06) ==
LOC: WOU 08:57
PROVIDERS: ATTEND Podiatrist Foot & Ankle Surgery
DX: I70.233 Atherosclerosis of native arteries of right leg with ulceration of ankle (principal); L97.312 Non-pressure chronic ulcer of right ankle with fat layer exposed; G35 Multiple sclerosis; R26.2 Difficulty in walking, not elsewhere classified; M25.571 Pain in right ankle and joints of right foot; Z79.01 Long term (current) use of anticoagulants
CPT/HCPCS: 11042; 97605-TC

== ENCOUNTER 2022-09-09 10:00 | Outpatient (CLI) | payer MEDICARE, OTHER ==
[2022-09-09] MEDS ORDERED: LIDOCAINE SOLN 4% 50 ML BOTTLE ONE (10:18)
[2022-09-09] MEDS ORDERED: GENTAMICIN 0.1% CREAM 15 GM TUBE ONE (11:06)
== END 2022-09-09 23:59 | disposition home health service (06) ==
LOC: WOU 10:00
PROVIDERS: ATTEND Podiatrist Foot & Ankle Surgery
DX: I70.233 Atherosclerosis of native arteries of right leg with ulceration of ankle (principal); L97.312 Non-pressure chronic ulcer of right ankle with fat layer exposed; R26.2 Difficulty in walking, not elsewhere classified; L60.3 Nail dystrophy; G35 Multiple sclerosis; M25.571 Pain in right ankle and joints of right foot; Z79.01 Long term (current) use of anticoagulants; Z79.899 Other long term (current) drug therapy
CPT/HCPCS: 11043; 97605-TC; A6407

== ENCOUNTER → 2022-09-14 | Outpatient (CLI) | payer MEDICARE, OTHER | END | disposition home or self-care (01) | LOC: MSC 13:00 | PROVIDERS: ATTEND Anesthesiology | DX: G89.29 Other chronic pain (principal); M79.604 Pain in right leg; M54.50 Low back pain, unspecified; M40.299 Other kyphosis, site unspecified; G82.22 Paraplegia, incomplete; G82.20 Paraplegia, unspecified; G35 Multiple sclerosis; M79.2 Neuralgia and neuritis, unspecified; L97.901 Non-pressure chronic ulcer of unspecified part of unspecified lower leg limited to breakdown of skin; Z79.891 Long term (current) use of opiate analgesic ==

== ENCOUNTER 2022-09-16 09:49 | Outpatient (CLI) | payer MEDICARE, OTHER ==
[~2022-09-16 09:49] MED LIST changes: +LIDOCAINE SOLN 4% 50 ML BOTTLE ONE
== END 2022-09-16 23:59 | disposition home health service (06) ==
LOC: WOU 09:49
PROVIDERS: ATTEND Podiatrist Foot & Ankle Surgery
DX: I70.233 Atherosclerosis of native arteries of right leg with ulceration of ankle (principal); L97.312 Non-pressure chronic ulcer of right ankle with fat layer exposed; G35 Multiple sclerosis; I87.2 Venous insufficiency (chronic) (peripheral); R26.2 Difficulty in walking, not elsewhere classified; L60.3 Nail dystrophy; M25.571 Pain in right ankle and joints of right foot; Z79.02 Long term (current) use of antithrombotics/antiplatelets
CPT/HCPCS: 11042; 97605-TC

== ENCOUNTER 2022-09-23 09:39 | Outpatient (CLI) | payer MEDICARE, OTHER ==
[~2022-09-23 09:39] MED LIST changes: -LIDOCAINE SOLN 4% 50 ML BOTTLE ONE
[2022-09-23] MEDS ORDERED: LIDOCAINE SOLN 4% 50 ML BOTTLE ONE (09:40)
== END 2022-09-23 23:59 | disposition home health service (06) ==
LOC: WOU 09:39
PROVIDERS: ATTEND Podiatrist Foot & Ankle Surgery
DX: I70.233 Atherosclerosis of native arteries of right leg with ulceration of ankle (principal); L97.312 Non-pressure chronic ulcer of right ankle with fat layer exposed; I87.2 Venous insufficiency (chronic) (peripheral); G35 Multiple sclerosis; R26.2 Difficulty in walking, not elsewhere classified; L60.3 Nail dystrophy; M25.571 Pain in right ankle and joints of right foot; Z79.01 Long term (current) use of anticoagulants; Z79.899 Other long term (current) drug therapy
CPT/HCPCS: 15271; Q4158; 97605-TC

== ENCOUNTER 2022-09-30 09:30 | Outpatient (CLI) | payer MEDICARE, OTHER ==
[2022-09-30] MEDS ORDERED: LIDOCAINE SOLN 4% 50 ML BOTTLE ONE (09:47)
== END 2022-09-30 23:59 | disposition home health service (06) ==
LOC: WOU 09:30
PROVIDERS: ATTEND Podiatrist Foot & Ankle Surgery
DX: I70.233 Atherosclerosis of native arteries of right leg with ulceration of ankle (principal); L97.312 Non-pressure chronic ulcer of right ankle with fat layer exposed; G35 Multiple sclerosis; I87.2 Venous insufficiency (chronic) (peripheral); M25.571 Pain in right ankle and joints of right foot; R26.2 Difficulty in walking, not elsewhere classified; L60.3 Nail dystrophy; Z79.01 Long term (current) use of anticoagulants; Z79.899 Other long term (current) drug therapy
CPT/HCPCS: 11043; 97605-TC

== ENCOUNTER 2022-10-07 09:45 | Outpatient (CLI) | payer MEDICARE, OTHER ==
[2022-10-07] MEDS ORDERED: LIDOCAINE SOLN 4% 50 ML BOTTLE ONE (10:05)
== END 2022-10-07 23:59 | disposition home health service (06) ==
LOC: WOU 09:45
PROVIDERS: ATTEND Podiatrist Foot & Ankle Surgery
DX: I70.233 Atherosclerosis of native arteries of right leg with ulceration of ankle (principal); L97.312 Non-pressure chronic ulcer of right ankle with fat layer exposed; G35 Multiple sclerosis; I87.2 Venous insufficiency (chronic) (peripheral); L60.3 Nail dystrophy; M25.571 Pain in right ankle and joints of right foot; R26.2 Difficulty in walking, not elsewhere classified; Z79.01 Long term (current) use of anticoagulants; Z79.899 Other long term (current) drug therapy
CPT/HCPCS: 15271; Q4158; 97605-TC

== ENCOUNTER 2022-10-14 11:29 | Outpatient (CLI) | payer MEDICARE, OTHER ==
[~2022-10-14 11:29] MED LIST changes: +LIDOCAINE SOLN 4% 50 ML BOTTLE ONE
== END 2022-10-14 23:59 | disposition home health service (06) ==
LOC: WOU 11:29
PROVIDERS: ATTEND Podiatrist Foot & Ankle Surgery
DX: I70.233 Atherosclerosis of native arteries of right leg with ulceration of ankle (principal); L97.315 Non-pressure chronic ulcer of right ankle with muscle involvement without evidence of necrosis; G35 Multiple sclerosis; I87.2 Venous insufficiency (chronic) (peripheral); R26.2 Difficulty in walking, not elsewhere classified; M25.571 Pain in right ankle and joints of right foot; L60.3 Nail dystrophy; Z79.02 Long term (current) use of antithrombotics/antiplatelets; Z79.899 Other long term (current) drug therapy
CPT/HCPCS: 15271; Q4158

== ENCOUNTER 2022-10-25 09:30 | Outpatient (CLI) | payer MEDICARE, OTHER ==
[~2022-10-25 09:30] MED LIST changes: -LIDOCAINE SOLN 4% 50 ML BOTTLE ONE
[2022-10-25] MEDS ORDERED: LIDOCAINE SOLN 4% 50 ML BOTTLE ONE (09:31)
== END 2022-10-25 23:59 | disposition home health service (06) ==
LOC: WOU 09:30
PROVIDERS: ATTEND Podiatrist Foot & Ankle Surgery
DX: I70.233 Atherosclerosis of native arteries of right leg with ulceration of ankle (principal); L97.312 Non-pressure chronic ulcer of right ankle with fat layer exposed; G35 Multiple sclerosis; I87.2 Venous insufficiency (chronic) (peripheral); L60.3 Nail dystrophy; R26.2 Difficulty in walking, not elsewhere classified; M25.571 Pain in right ankle and joints of right foot; Z79.01 Long term (current) use of anticoagulants; Z79.899 Other long term (current) drug therapy
CPT/HCPCS: 15271; Q4158

== ENCOUNTER 2022-11-01 09:42 | Outpatient (CLI) | payer MEDICARE, OTHER | END 2022-11-01 23:59 | disposition home health service (06) | LOC: WOU 09:42 | PROVIDERS: ATTEND Podiatrist Foot & Ankle Surgery | DX: I70.233 Atherosclerosis of native arteries of right leg with ulceration of ankle (principal); L97.312 Non-pressure chronic ulcer of right ankle with fat layer exposed; I87.2 Venous insufficiency (chronic) (peripheral); G35 Multiple sclerosis; L89.896 Pressure-induced deep tissue damage of other site; L60.3 Nail dystrophy; M25.571 Pain in right ankle and joints of right foot; R26.2 Difficulty in walking, not elsewhere classified; Z79.899 Other long term (current) drug therapy | CPT/HCPCS: 15271; Q4158; A6210; A6207; A6454 ==

== ENCOUNTER 2022-11-08 09:49 | Outpatient (CLI) | payer MEDICARE, OTHER ==
[2022-11-08] MEDS ORDERED: CADEXOMER IODINE UD 5 GM TUBE ONE (10:12)
[2022-11-08] MEDS ORDERED: HYDROCORTISONE 1% CREAM 28.35 GM TUBE TP ONE (10:13)
== END 2022-11-08 23:59 | disposition home health service (06) ==
LOC: WOU 09:49
PROVIDERS: ATTEND Podiatrist Foot & Ankle Surgery
DX: I70.233 Atherosclerosis of native arteries of right leg with ulceration of ankle (principal); L97.312 Non-pressure chronic ulcer of right ankle with fat layer exposed; I87.2 Venous insufficiency (chronic) (peripheral); G35 Multiple sclerosis; L60.3 Nail dystrophy; M25.571 Pain in right ankle and joints of right foot; R26.2 Difficulty in walking, not elsewhere classified; Z79.899 Other long term (current) drug therapy; Z79.01 Long term (current) use of anticoagulants
CPT/HCPCS: 11042; 82962-TC

== ENCOUNTER 2022-11-15 09:30 | Outpatient (CLI) | payer MEDICARE, OTHER ==
[2022-11-15] MEDS ORDERED: LIDOCAINE SOLN 4% 50 ML BOTTLE ONE (09:52)
== END 2022-11-15 23:59 | disposition home health service (06) ==
LOC: WOU 09:30
PROVIDERS: ATTEND Podiatrist Foot & Ankle Surgery
DX: I70.233 Atherosclerosis of native arteries of right leg with ulceration of ankle (principal); L97.315 Non-pressure chronic ulcer of right ankle with muscle involvement without evidence of necrosis; G35 Multiple sclerosis; I87.2 Venous insufficiency (chronic) (peripheral); M25.571 Pain in right ankle and joints of right foot; R26.2 Difficulty in walking, not elsewhere classified; L60.3 Nail dystrophy; Z79.899 Other long term (current) drug therapy
CPT/HCPCS: 11043

== ENCOUNTER 2022-11-22 10:15 | Outpatient (CLI) | payer MEDICARE, OTHER | END 2022-11-22 23:59 | disposition home health service (06) | LOC: WOU 10:15 | PROVIDERS: ATTEND Podiatrist Foot & Ankle Surgery | DX: I70.233 Atherosclerosis of native arteries of right leg with ulceration of ankle (principal); L97.315 Non-pressure chronic ulcer of right ankle with muscle involvement without evidence of necrosis; G35 Multiple sclerosis; I87.2 Venous insufficiency (chronic) (peripheral); R26.2 Difficulty in walking, not elsewhere classified; L60.3 Nail dystrophy; M25.571 Pain in right ankle and joints of right foot; Z79.01 Long term (current) use of anticoagulants; Z79.899 Other long term (current) drug therapy | CPT/HCPCS: 15271; Q4158 ==

== ENCOUNTER 2022-11-23 12:30 | Outpatient (CLI) | payer MEDICARE, OTHER | END 2022-11-23 23:59 | disposition home or self-care (01) | LOC: MSC 12:30 | PROVIDERS: ATTEND Anesthesiology | DX: M54.50 Low back pain, unspecified (principal); M40.299 Other kyphosis, site unspecified; M79.604 Pain in right leg; G82.22 Paraplegia, incomplete; G82.20 Paraplegia, unspecified; G35 Multiple sclerosis; M79.2 Neuralgia and neuritis, unspecified; L97.901 Non-pressure chronic ulcer of unspecified part of unspecified lower leg limited to breakdown of skin; Z79.891 Long term (current) use of opiate analgesic ==

== ENCOUNTER 2022-11-29 09:47 | Outpatient (CLI) | payer MEDICARE, OTHER ==
[2022-11-29] MEDS ORDERED: LIDOCAINE SOLN 4% 50 ML BOTTLE ONE (09:50)
[2022-11-29] MEDS ORDERED: UREA 10% -AHA 4% CREAM 57 GM TUBE ONE (10:34)
== END 2022-11-29 23:59 | disposition home or self-care (01) ==
LOC: WOU 09:47
PROVIDERS: ATTEND Podiatrist Foot & Ankle Surgery
DX: I87.311 Chronic venous hypertension (idiopathic) with ulcer of right lower extremity (principal); I70.233 Atherosclerosis of native arteries of right leg with ulceration of ankle; L97.315 Non-pressure chronic ulcer of right ankle with muscle involvement without evidence of necrosis; I87.2 Venous insufficiency (chronic) (peripheral); G35 Multiple sclerosis; R26.2 Difficulty in walking, not elsewhere classified; M25.571 Pain in right ankle and joints of right foot; L60.3 Nail dystrophy; Z79.02 Long term (current) use of antithrombotics/antiplatelets; Z79.899 Other long term (current) drug therapy
CPT/HCPCS: 15271; Q4158; A6454

== ENCOUNTER 2022-12-06 12:05 | Outpatient (CLI) | payer MEDICARE, OTHER ==
[2022-12-06] MEDS ORDERED: LIDOCAINE SOLN 4% 50 ML BOTTLE ONE (12:18)
== END 2022-12-06 23:59 | disposition home health service (06) ==
LOC: WOU 12:05
PROVIDERS: ATTEND Surgery
DX: I87.311 Chronic venous hypertension (idiopathic) with ulcer of right lower extremity (principal); I70.233 Atherosclerosis of native arteries of right leg with ulceration of ankle; L97.315 Non-pressure chronic ulcer of right ankle with muscle involvement without evidence of necrosis; R26.2 Difficulty in walking, not elsewhere classified; G35 Multiple sclerosis; I87.2 Venous insufficiency (chronic) (peripheral); L60.3 Nail dystrophy; M25.571 Pain in right ankle and joints of right foot; Z79.02 Long term (current) use of antithrombotics/antiplatelets
CPT/HCPCS: 15271; Q4158; A6454

== ENCOUNTER 2022-12-13 09:16 | Outpatient (CLI) | payer MEDICARE, OTHER ==
[2022-12-13] MEDS ORDERED: LIDOCAINE 2% JEL 5 ML TUBE ONE (09:19)
== END 2022-12-13 23:59 | disposition home health service (06) ==
LOC: WOU 09:16
PROVIDERS: ATTEND Podiatrist Foot & Ankle Surgery
DX: I87.311 Chronic venous hypertension (idiopathic) with ulcer of right lower extremity (principal); L97.315 Non-pressure chronic ulcer of right ankle with muscle involvement without evidence of necrosis; I87.2 Venous insufficiency (chronic) (peripheral); G35 Multiple sclerosis; L60.3 Nail dystrophy; M25.571 Pain in right ankle and joints of right foot; Z79.899 Other long term (current) drug therapy
CPT/HCPCS: 15271; Q4158; A6454

== ENCOUNTER 2022-12-20 10:12 | Outpatient (CLI) | payer MEDICARE, OTHER | END 2022-12-20 23:59 | disposition home health service (06) | LOC: WOU 10:12 | PROVIDERS: ATTEND Podiatrist Foot & Ankle Surgery | DX: I87.311 Chronic venous hypertension (idiopathic) with ulcer of right lower extremity (principal); L97.315 Non-pressure chronic ulcer of right ankle with muscle involvement without evidence of necrosis; I73.9 Peripheral vascular disease, unspecified; I87.2 Venous insufficiency (chronic) (peripheral); G35 Multiple sclerosis; M25.571 Pain in right ankle and joints of right foot; L60.3 Nail dystrophy; R26.2 Difficulty in walking, not elsewhere classified; Z79.01 Long term (current) use of anticoagulants; Z79.899 Other long term (current) drug therapy | CPT/HCPCS: 15271; Q4186 ==

== ENCOUNTER 2022-12-27 09:43 | Outpatient (CLI) | payer MEDICARE, OTHER ==
[2022-12-27] MEDS ORDERED: LIDOCAINE SOLN 4% 50 ML BOTTLE ONE (09:54)
== END 2022-12-27 23:59 | disposition home health service (06) ==
LOC: WOU 09:43
PROVIDERS: ATTEND Podiatrist Foot & Ankle Surgery
DX: I87.311 Chronic venous hypertension (idiopathic) with ulcer of right lower extremity (principal); L97.312 Non-pressure chronic ulcer of right ankle with fat layer exposed; G35 Multiple sclerosis; I87.2 Venous insufficiency (chronic) (peripheral); R26.2 Difficulty in walking, not elsewhere classified; L60.3 Nail dystrophy; M25.571 Pain in right ankle and joints of right foot; Z79.02 Long term (current) use of antithrombotics/antiplatelets
CPT/HCPCS: 15271; A6207; Q4186

== ENCOUNTER 2023-01-03 10:06 | Outpatient (CLI) | payer MEDICARE, OTHER | END 2023-01-03 23:59 | disposition home health service (06) | LOC: WOU 10:06 | PROVIDERS: ATTEND Podiatrist Foot & Ankle Surgery | DX: I87.311 Chronic venous hypertension (idiopathic) with ulcer of right lower extremity (principal); L97.312 Non-pressure chronic ulcer of right ankle with fat layer exposed; I73.9 Peripheral vascular disease, unspecified; I87.2 Venous insufficiency (chronic) (peripheral); G35 Multiple sclerosis; R26.2 Difficulty in walking, not elsewhere classified; M25.571 Pain in right ankle and joints of right foot; Z79.02 Long term (current) use of antithrombotics/antiplatelets; Z79.899 Other long term (current) drug therapy | CPT/HCPCS: 15271; Q4186 ==

== ENCOUNTER 2023-01-04 12:32 | Outpatient (CLI) | payer MEDICARE, OTHER | END 2023-01-04 23:59 | disposition home or self-care (01) | LOC: MSC 12:32 | PROVIDERS: ATTEND Anesthesiology | DX: G89.4 Chronic pain syndrome (principal); M54.50 Low back pain, unspecified; M40.299 Other kyphosis, site unspecified; G82.22 Paraplegia, incomplete; G82.20 Paraplegia, unspecified; G35 Multiple sclerosis; M79.2 Neuralgia and neuritis, unspecified; Z79.891 Long term (current) use of opiate analgesic; L97.901 Non-pressure chronic ulcer of unspecified part of unspecified lower leg limited to breakdown of skin ==

== ENCOUNTER 2023-01-10 09:45 | Outpatient (CLI) | payer MEDICARE, OTHER | END 2023-01-10 23:59 | disposition home health service (06) | LOC: WOU 09:45 | PROVIDERS: ATTEND Podiatrist Foot & Ankle Surgery | DX: I87.311 Chronic venous hypertension (idiopathic) with ulcer of right lower extremity (principal); L97.312 Non-pressure chronic ulcer of right ankle with fat layer exposed; I73.9 Peripheral vascular disease, unspecified; I87.2 Venous insufficiency (chronic) (peripheral); G35 Multiple sclerosis; R26.2 Difficulty in walking, not elsewhere classified; M25.571 Pain in right ankle and joints of right foot; L60.3 Nail dystrophy; Z79.02 Long term (current) use of antithrombotics/antiplatelets; Z79.899 Other long term (current) drug therapy | CPT/HCPCS: 11042; 97605; A6207 ==

== ENCOUNTER 2023-01-17 09:36 | Outpatient (CLI) | payer MEDICARE, OTHER ==
[2023-01-17] MEDS ORDERED: UREA 10% -AHA 4% CREAM 57 GM TUBE ONE (10:24)
== END 2023-01-17 23:59 | disposition home health service (06) ==
LOC: WOU 09:36
PROVIDERS: ATTEND Podiatrist Foot & Ankle Surgery
DX: I87.311 Chronic venous hypertension (idiopathic) with ulcer of right lower extremity (principal); L97.312 Non-pressure chronic ulcer of right ankle with fat layer exposed; I87.2 Venous insufficiency (chronic) (peripheral); I73.9 Peripheral vascular disease, unspecified; G35 Multiple sclerosis; R26.2 Difficulty in walking, not elsewhere classified; L60.3 Nail dystrophy; M25.571 Pain in right ankle and joints of right foot; Z79.02 Long term (current) use of antithrombotics/antiplatelets
CPT/HCPCS: 11042; 97605; A6207 ×2; A4649

== ENCOUNTER 2023-01-27 10:04 | Outpatient (CLI) | payer MEDICARE, OTHER | END 2023-01-27 23:59 | disposition home health service (06) | LOC: WOU 10:04 | PROVIDERS: ATTEND Podiatrist Foot & Ankle Surgery | DX: I87.311 Chronic venous hypertension (idiopathic) with ulcer of right lower extremity (principal); L97.312 Non-pressure chronic ulcer of right ankle with fat layer exposed; I70.233 Atherosclerosis of native arteries of right leg with ulceration of ankle; I87.2 Venous insufficiency (chronic) (peripheral); G35 Multiple sclerosis; R26.2 Difficulty in walking, not elsewhere classified; M25.571 Pain in right ankle and joints of right foot; L60.3 Nail dystrophy | CPT/HCPCS: 11042; A6207; A4649 ==

== ENCOUNTER 2023-02-01 12:28 | Outpatient (CLI) | payer MEDICARE, OTHER | END 2023-02-01 23:59 | disposition home or self-care (01) | LOC: MSC 12:28 | PROVIDERS: ATTEND Anesthesiology | DX: G89.4 Chronic pain syndrome (principal); M54.50 Low back pain, unspecified; M40.299 Other kyphosis, site unspecified; Z79.891 Long term (current) use of opiate analgesic; G82.22 Paraplegia, incomplete; G82.20 Paraplegia, unspecified; G35 Multiple sclerosis; M79.2 Neuralgia and neuritis, unspecified; L97.901 Non-pressure chronic ulcer of unspecified part of unspecified lower leg limited to breakdown of skin; Z79.899 Other long term (current) drug therapy ==

== ENCOUNTER 2023-02-03 11:14 | Outpatient (CLI) | payer MEDICARE, OTHER ==
[~2023-02-03 11:14] MED LIST changes: +LIDOCAINE 2% JEL 5 ML TUBE ONE
== END 2023-02-03 23:59 | disposition home health service (06) ==
LOC: WOU 11:14
PROVIDERS: ATTEND Surgery
DX: I87.311 Chronic venous hypertension (idiopathic) with ulcer of right lower extremity (principal); L97.312 Non-pressure chronic ulcer of right ankle with fat layer exposed; I73.9 Peripheral vascular disease, unspecified; I87.2 Venous insufficiency (chronic) (peripheral); M25.571 Pain in right ankle and joints of right foot; G35 Multiple sclerosis; R26.2 Difficulty in walking, not elsewhere classified; L60.3 Nail dystrophy; Z79.01 Long term (current) use of anticoagulants
CPT/HCPCS: 11042; A6207; A4649

== ENCOUNTER 2023-02-10 09:39 | Outpatient (CLI) | payer MEDICARE, OTHER ==
[~2023-02-10 09:39] MED LIST changes: -LIDOCAINE 2% JEL 5 ML TUBE ONE
[2023-02-10] MEDS ORDERED: UREA 10% -AHA 4% CREAM 57 GM TUBE ONE (10:01)
== END 2023-02-10 23:59 | disposition home health service (06) ==
LOC: WOU 09:39
PROVIDERS: ATTEND Podiatrist Foot & Ankle Surgery
DX: I87.311 Chronic venous hypertension (idiopathic) with ulcer of right lower extremity (principal); L97.312 Non-pressure chronic ulcer of right ankle with fat layer exposed; I87.2 Venous insufficiency (chronic) (peripheral); I73.9 Peripheral vascular disease, unspecified; G35 Multiple sclerosis; M25.571 Pain in right ankle and joints of right foot; R26.2 Difficulty in walking, not elsewhere classified; L60.3 Nail dystrophy; Z79.01 Long term (current) use of anticoagulants
CPT/HCPCS: 11042; A6207; A4649 ×2

== ENCOUNTER 2023-03-22 13:23 | Outpatient (CLI) | payer MEDICARE, OTHER | END 2023-03-22 23:59 | disposition home or self-care (01) | LOC: MSC 13:23 | PROVIDERS: ATTEND Anesthesiology | DX: M54.9 Dorsalgia, unspecified (principal); M40.299 Other kyphosis, site unspecified; L97.811 Non-pressure chronic ulcer of other part of right lower leg limited to breakdown of skin; G35 Multiple sclerosis; G82.22 Paraplegia, incomplete; G82.20 Paraplegia, unspecified; Z99.3 Dependence on wheelchair; M79.2 Neuralgia and neuritis, unspecified; Z79.891 Long term (current) use of opiate analgesic; Z79.899 Other long term (current) drug therapy ==

== ENCOUNTER 2023-04-26 12:52 | Outpatient (CLI) | payer MEDICARE, OTHER | END 2023-04-26 23:59 | disposition home or self-care (01) | LOC: MSC 12:52 | PROVIDERS: ATTEND Anesthesiology | DX: G89.4 Chronic pain syndrome (principal); M79.604 Pain in right leg; M54.50 Low back pain, unspecified; M40.299 Other kyphosis, site unspecified; Z79.891 Long term (current) use of opiate analgesic; G35 Multiple sclerosis; G82.22 Paraplegia, incomplete; G82.20 Paraplegia, unspecified; M79.2 Neuralgia and neuritis, unspecified; L97.901 Non-pressure chronic ulcer of unspecified part of unspecified lower leg limited to breakdown of skin; Z79.899 Other long term (current) drug therapy ==

== ENCOUNTER 2023-05-05 09:45 | Outpatient (CLI) | payer MEDICARE, OTHER | END 2023-05-05 23:59 | disposition home health service (06) | LOC: WOU 09:45 | PROVIDERS: ATTEND Podiatrist Foot & Ankle Surgery | DX: I87.2 Venous insufficiency (chronic) (peripheral) (principal); I73.9 Peripheral vascular disease, unspecified; G35 Multiple sclerosis; M25.571 Pain in right ankle and joints of right foot; R26.2 Difficulty in walking, not elsewhere classified; L60.3 Nail dystrophy; Z79.01 Long term (current) use of anticoagulants | CPT/HCPCS: 29581; A6207; A4649 ==

== ENCOUNTER 2023-05-19 10:07 | Outpatient (CLI) | payer MEDICARE, OTHER | END 2023-05-19 23:59 | disposition home health service (06) | LOC: WOU 10:07 | PROVIDERS: ATTEND Podiatrist Foot & Ankle Surgery | DX: Z09 Encounter for follow-up examination after completed treatment for conditions other than malignant neoplasm (principal); Z87.2 Personal history of diseases of the skin and subcutaneous tissue; G35 Multiple sclerosis; R26.2 Difficulty in walking, not elsewhere classified; L60.3 Nail dystrophy; M25.571 Pain in right ankle and joints of right foot; Z79.01 Long term (current) use of anticoagulants | CPT/HCPCS: G0463 ==